=== PATIENT | female | born 1975 | race Caucasian/White ===

== ENCOUNTER 2016-09-29 20:24 | Emergency (ER) | payer OTHER ==
[2016-09-29 20:41] VITALS: RESP 18; TEMP 97.8
[2016-09-29 21:30] LABS: Basophils % (A) 1 %; CH 30.1; CHCM 33.2; Eosinophils # (A) 0.1 k/uL (0-0.7); Eosinophils % (A) 2 %; HCT 37.6 % (34.0-46.0); HDW 2.32; HGB 12.2 gm/dL (11.4-16.0); Luc # (Auto) 0.05; Luc % (Auto) 1; Lymphocytes # (A) 1.5 k/uL (1.0-4.8); Lymphocytes % (A) 40 %; MCH 29.4 pg (25.0-35.0); MCHC 32.4 g/dL (31.0-37.0); MCV 90.9 fL (80.0-100.0); Mean Platelet Volume 9.1; Monocytes # (A) 0.2 k/uL (0-1.0); Monocytes % (A) 6 %; Neutrophils # (A) 1.9 k/uL (1.3-7.7); Neutrophils % (A) 51 %; RBC 4.14 m/uL (3.80-5.40); RDW 13.1 % (11.5-15.5); WBC 3.7 k/uL (3.8-10.6); WBC (Perox) 3.62
[2016-09-29 21:39] LABS: Partial Thromboplastin Time 24.1 sec (22.0-30.0); Prothrombin Time 10.3 sec (9.0-12.0)
[2016-09-29 21:40] LABS: ALT 31 U/L (9-52); AST 32 U/L (14-36); Alkaline Phosphatase 69 U/L (38-126); Anion Gap 12 mmol/L; Blood Urea Nitrogen 11 mg/dL (7-17); Carbon Dioxide 30 mmol/L (22-30); Chloride 101 mmol/L (98-107); Glucose 94 mg/dL (74-99); Magnesium 1.8 mg/dL (1.6-2.3); Non-African American GFR(MDRD) >60 (>60 ml/min/1.73 sqM); Potassium 3.8 mmol/L (3.5-5.1); Sodium 143 mmol/L (137-145); Total Bilirubin 0.3 mg/dL (0.2-1.3); Total Protein 7.4 g/dL (6.3-8.2)
[2016-09-29 21:50] LABS: Creatine Kinase 141 U/L (30-135)
[2016-09-29 22:03] LABS: Troponin I <0.012 ng/mL (0.000-0.034)
--- NOTE | 2016-09-29 22:19 | XR ---
EXAMINATION TYPE: XR chest 2V DATE OF EXAM: 09/29/2016 10:07 PM COMPARISON: 06/20/2014 HISTORY: Complaints of neck numbness no injury history of sarcoidosis TECHNIQUE: Frontal and lateral views of the chest are obtained. FINDINGS: There is hyperinflation of lung wilkerson. Minor interstitial changes are suggested bilaterally probably related to chronic lung changes and known history of sarcoidosis. There is no focal pneumonia, pleural effusion, or pneumothorax seen. The cardiac silhouette size is within normal limits. The osseous structures are intact. IMPRESSION: No focal pneumonia or infiltrates. No significant interval change.
--- NOTE | 2016-09-29 22:32 | XR ---
EXAMINATION TYPE: XR cervical spine comp DATE OF EXAM: 09/29/2016 10:07 PM CLINICAL HISTORY: pain complaints of neck numbness no injury history of sarcoidosis COMPARISON: 10/09/2011 TECHNIQUE: Frontal, lateral, oblique, swimmers, and open mouth view of the cervical spine are obtaine d. FINDINGS: The cervical spine is visualized in its entirety from C1 thru the top of T1 level. It is s atisfactory in alignment without evidence of acute fracture or dislocation. The pre-vertebral soft t issue appears within normal limits. Disc spaces are well preserved. The C1-C2 articulation is unremar kable on the open mouth view. The oblique images are within normal limits. Mild degenerative changes are suggested in the cervical spine. IMPRESSION: No acute fracture or dislocation is seen in the cervical spine. Mild degenerative changes. No significant interval change. ICD 10 NO FRACTURE, INITIAL EVALUATION
--- NOTE | 2016-09-29 22:42 | ED ---
General Adult HPI - General Chief complaint: Neck Pain/Injury Stated complaint: Palpatations/Rt side face numbness Time Seen by Provider: 09/29/16 20:56 Source: patient, RN notes reviewed Mode of arrival: ambulatory Limitations: no limitations - History of Present Illness Initial comments: Patient is a 41-year-old female presenting to the with chief complaint of numbness over her throat as well as coming over her face for approximately 3 days. Patient also reports that she's had a few episodes of heart palpitations presently 2 days. Patient states that when this happened she starts to become nervous and anxious. She also reports that she's had a sided neck pain which she reports she feels like is a pinched nerve. Patient denies any pain at this time. Patient reports that she's had no trouble swallowing. Patient reports that she has no cardiac history and is a nonsmoker. - Related Data Home Medications Medication Instructions Recorded Confirmed Methadone [Dolophine] 10 mg PO BID 01/19/14 09/29/16 Levothyroxine Sodium [Synthroid] 88 mcg PO TUTHSA 04/20/16 09/29/16 Levothyroxine Sodium [Synthroid] 100 mcg PO SUMOWEFR 04/20/16 09/29/16 Previous Rx's Medication Instructions Recorded Ibuprofen [Motrin] 800 mg PO Q8HR PRN #30 tab 01/19/14 Allergies Allergy/AdvReac Type Severity Reaction Status Date / Time latex Allergy Rash/Hives Verified 09/29/16 21:07 prochlorperazine edisylate AdvReac FEELS LIKE Verified 09/29/16 21:07 [From Compazine] SKIN IS CRAWLING" prochlorperazine maleate AdvReac Unknown Verified 09/29/16 21:07 [From Compazine] Review of Systems ROS Statement: Those systems with pertinent positive or pertinent negative responses have been documented in the HPI. ROS Other: All systems not noted in ROS Statement are negative. Past Medical History Past Medical History: COPD, Thyroid Disorder Additional Past Medical History / Comment(s): factor 5 deficiency, osteopenia, raynauds History of Any Multi-Drug Resistant Organisms: None Reported Past Surgical History: Back Surgery, Breast Surgery, Section, Hysterectomy, Orthopedic Surgery Additional Past Surgical History / Comment(s): BREAST IMPLANTS REMOVED, LAPAROSCOPIC EXAMS, Past Anesthesia/Blood Transfusion Reactions: No Reported Reaction Past Psychological History: No Psychological Hx Reported Smoking Status: Former smoker Past Alcohol Use History: None Reported Past Drug Use History: None Reported - Past Family History Mother Family Medical History: Cancer General Exam Limitations: no limitations Course Vital Signs 09/29/16 09/29/16 20:37 23:24 Temperature 97.8 F 97.8 F Pulse Rate 81 78 Respiratory 18 18 Rate Blood Pressure 110/66 122/78 O2 Sat by Pulse 99 98 Oximetry EKG Findings - EKG Comments: EKG Findings:: EKG shows normal sinus rhythm. There is evidence of cannot rule out anterior infarct. Ventricular rate 69 bpm. MO interval is 152 ms. QRS duration is 84 ms. QT/QTc is 420/450 ms. Medical Decision Making - Medical Decision Making Patient is a 41 year old female with chief complaint of neck paresthesias radiating to her face, and a few episodes of palpitations in the EC. Labs were reviewed to be negative. Patients Cxr and cervical spine are negative. Given patient's lengthy history of these symptoms and negative cardiac enzymes and negative EKG is unlikely that anything is related to the heart. Patient reports increased muscle spasm in the trapezius and relates this to her symptoms. Patient will be discharged at this time and declines any medication. I advised close follow-up with primary care physician. Patient understands treatment plan will comply. Return parameters were discussed. - Lab Data Result diagrams: 09/29/16 21:20 09/29/16 21:20 Lab Results 09/29/16 09/29/16 09/29/16 Range/Units 21:20 21:20 21:20 WBC 3.7 L (3.8-10.6) k/uL RBC 4.14 (3.80-5.40) m/uL Hgb 12.2 (11.4-16.0) gm/dL Hct 37.6 (34.0-46.0) % MCV 90.9 (80.0-100.0) fL MCH 29.4 (25.0-35.0) pg MCHC 32.4 (31.0-37.0) g/dL RDW 13.1 (11.5-15.5) % Plt Count 109 L (150-450) k/uL Neutrophils % 51 % Lymphocytes % 40 % Monocytes % 6 % Eosinophils % 2 % Basophils % 1 % Neutrophils # 1.9 (1.3-7.7) k/uL Lymphocytes # 1.5 (1.0-4.8) k/uL Monocytes # 0.2 (0-1.0) k/uL Eosinophils # 0.1 (0-0.7) k/uL Basophils # 0.0 (0-0.2) k/uL PT (9.0-12.0) sec INR (<1.1) APTT (22.0-30.0) sec Sodium 143 (137-145) mmol/L Potassium 3.8 (3.5-5.1) mmol/L Chloride 101 (98-107) mmol/L Carbon Dioxide 30 (22-30) mmol/L Anion Gap 12 mmol/L BUN 11 (7-17) mg/dL Creatinine 0.72 (0.52-1.04) mg/dL Est GFR (MDRD) Af Amer >60 (>60 ml/min/1.73 sqM) Est GFR (MDRD) Non-Af >60 (>60 ml/min/1.73 sqM) Glucose 94 (74-99) mg/dL Calcium 9.0 (8.4-10.2) mg/dL Magnesium 1.8 (1.6-2.3) mg/dL Total Bilirubin 0.3 (0.2-1.3) mg/dL AST 32 (14-36) U/L ALT 31 (9-52) U/L Alkaline Phosphatase 69 (38-126) U/L Total Creatine Kinase 141 H (30-135) U/L CK-MB (CK-2) 1.0 (0.0-2.4) ng/mL CK-MB (CK-2) Rel Index 0.7 Troponin I <0.012 (0.000-0.034) ng/mL Total Protein 7.4 (6.3-8.2) g/dL Albumin 4.3 (3.5-5.0) g/dL 09/29/16 Range/Units 21:20 WBC (3.8-10.6) k/uL RBC (3.80-5.40) m/uL Hgb (11.4-16.0) gm/dL Hct (34.0-46.0) % MCV (80.0-100.0) fL MCH (25.0-35.0) pg MCHC (31.0-37.0) g/dL RDW (11.5-15.5) % Plt Count (150-450) k/uL Neutrophils % % Lymphocytes % % Monocytes % % Eosinophils % % Basophils % % Neutrophils # (1.3-7.7) k/uL Lymphocytes # (1.0-4.8) k/uL Monocytes # (0-1.0) k/uL Eosinophils # (0-0.7) k/uL Basophils # (0-0.2) k/uL PT 10.3 (9.0-12.0) sec INR 1.0 (<1.1) APTT 24.1 (22.0-30.0) sec Sodium (137-145) mmol/L Potassium (3.5-5.1) mmol/L Chloride (98-107) mmol/L Carbon Dioxide (22-30) mmol/L Anion Gap mmol/L BUN (7-17) mg/dL Creatinine (0.52-1.04) mg/dL Est GFR (MDRD) Af Amer (>60 ml/min/1.73 sqM) Est GFR (MDRD) Non-Af (>60 ml/min/1.73 sqM) Glucose (74-99) mg/dL Calcium (8.4-10.2) mg/dL Magnesium (1.6-2.3) mg/dL Total Bilirubin (0.2-1.3) mg/dL AST (14-36) U/L ALT (9-52) U/L Alkaline Phosphatase (38-126) U/L Total Creatine Kinase (30-135) U/L CK-MB (CK-2) (0.0-2.4) ng/mL CK-MB (CK-2) Rel Index Troponin I (0.000-0.034) ng/mL Total Protein (6.3-8.2) g/dL Albumin (3.5-5.0) g/dL - Radiology Data Radiology results: report reviewed CXR and cervical spine show no acute process. Disposition Clinical Impression: Neck pain, History of palpitations, Facial paresthesia Disposition: HOME SELF-CARE Condition: Good Instructions: Cervical Strain (ED), Paresthesia (ED) Additional Instructions: Patient instructed to apply heat over the neck. Patient started to have close follow-up with primary care physician. Patient started to return to the EC if any alarming signs or symptoms occur. Referrals: Jocelyne Domingo MD [Primary Care Provider] - 1-2 days Time of Disposition: 22:56
[2016-09-29 23:25] VITALS: BP 122/78; PULSE 78
== END 2016-09-29 23:24 | disposition home or self-care (01) ==
LOC: EC 20:24
DX: M54.2 Cervicalgia (principal); R00.2 Palpitations; R20.0 Anesthesia of skin; Z79.899 Other long term (current) drug therapy; Z91.040 Latex allergy status; Z88.8 Allergy status to other drugs, medicaments and biological substances; E07.9 Disorder of thyroid, unspecified; Z87.891 Personal history of nicotine dependence; Z79.891 Long term (current) use of opiate analgesic
CPT/HCPCS: 36415; 71020; 72050; 80053; 82550; 82553; 83735; 84484; 85025; 85610; 85730; 93005; 99284

== ENCOUNTER → 2016-10-10 | Outpatient (CLI) | payer OTHER ==
--- NOTE | 2016-10-10 15:23 | CT ---
EXAMINATION TYPE: CT abdomen pelvis wo con DATE OF EXAM: 10/10/2016 3:01 PM COMPARISON: NONE HISTORY: Constipation, appetite loss CT DLP: 258.2 mGycm FINDINGS: LUNG BASES: No evidence for nodule. No evidence for infiltrate. LIVER/GB: The gallbladder is unremarkable. No space-occupying hepatic lesion. PANCREAS: No pancreatic mass identified. No inflammatory process seen. SPLEEN: No evidence for splenomegaly. No intrasplenic lesions seen. ADRENALS: No adrenal nodules identified. No evidence for thickening. KIDNEYS: No evidence for renal mass. No nephrolithiasis. No hydronephrosis. BOWEL: Appendix has a normal appearance. No evidence of bowel obstruction. No inflammatory process. M oderate fecal stasis. Lymph nodes: No evidence for adenopathy greater than 1 cm. Abdominal aorta: Atheromatous changes seen. No evidence for aneurysm. Genital organs: No significant abnormality. Other: Degenerative changes and postoperative changes lumbar spine. IMPRESSION: MODERATE FECAL STASIS. OTHERWISE UNREMARKABLE STUDY.
== END | disposition home or self-care (01) ==
LOC: RADCTMAIN 14:48
PROVIDERS: ATTEND Family Medicine
DX: K59.09 Other constipation (principal); R63.0 Anorexia
CPT/HCPCS: 74176

== ENCOUNTER → 2016-10-27 | Outpatient (CLI) | payer OTHER ==
--- NOTE | 2016-10-27 22:35 | MR ---
EXAMINATION TYPE: MR cervical spine wo con DATE OF EXAM: 10/27/2016 7:57 PM COMPARISON: NONE HISTORY: PARESTHESIA OF SKIN TECHNIQUE: Multiplanar, multisequence images of the cervical spine were acquired. C2-C3: No evidence for degenerative disc disease. No disc bulge/herniation or protrusion. No Canal stenosis. Foramina are patent bilaterally. C3-C4: No evidence for degenerative disc disease. No disc bulge/herniation or protrusion. No Canal stenosis. Uncovertebral joint hypertrophy in the right with mild right-sided foraminal encroachment. C4-C5: No evidence for degenerative disc disease. No disc bulge/herniation or protrusion. No Canal stenosis. Very mild central broad-based disc bulging but no canal stenosis There is uncovertebral noel nt hypertrophy bilaterally greater on the right. Mild right foraminal encroachment. C5-C6: No evidence for degenerative disc disease. No disc bulge/herniation or protrusion. No Canal stenosis. Foramina are patent bilaterally. Facet arthropathy seen with uncovertebral joint hypertrop hy noted bilaterally. C6-C7: No evidence for degenerative disc disease. No disc bulge/herniation or protrusion. No Canal stenosis. Foramina are patent bilaterally. C7-T1: No evidence for degenerative disc disease. No disc bulge/herniation or protrusion. No Canal stenosis. Foramina are patent bilaterally. Cervical segments are intact. There is normal alignment. Cervical spinal cord is of normal signal. Craniovertebral junction relationships are within normal limits. IMPRESSION: 1. Mild broad-based central disc bulging C4-5 with no canal stenosis. 2. Uncovertebral joint hypertrophy C3-C4 and C4-C5 with mild right foraminal encroachment.
== END | disposition home or self-care (01) ==
LOC: RADMRIMAIN 18:51
PROVIDERS: ATTEND Family Medicine
DX: M50.221 Other cervical disc displacement at C4-C5 level (principal)
CPT/HCPCS: 72141

== ENCOUNTER → 2016-12-17 | Outpatient (CLI) | payer OTHER ==
--- NOTE | 2016-12-17 19:44 | MR ---
EXAMINATION TYPE: MR lumbar spine wo/w con DATE OF EXAM: 12/17/2016 1:53 PM COMPARISON: NONE HISTORY: 41-year-old female with low Back Pain Technique: Multiplanar, multisequence images of the lumbar spine were obtained before and after admin istration of 13 mL intravenous MultiHance gadolinium contrast. FINDINGS: There is severe metal hardware artifact relating to patient's L5-S1 posterior fusion. The spinal castro l at these levels is nondiagnostic as are the neuroforamina. There is facet arthropathy within the lumbar spine with trace grade 1 retrolistheses at L2-L3 and L3- L4. Vertebral body heights are preserved. No suspicious bone marrow replacement. Conus medullaris is normal. At T12-L1, minimal bulging disc without canal or foraminal stenosis. At L1-L2, minimal bulging disc and a tiny left paracentral protrusion without significant canal or fo raminal stenosis. At L2-L3, there is trace retrolisthesis with broad based posterior disc bulge and mild facet arthropa thy. Changes mildly narrow the thecal sac without significant spinal canal stenosis or neuroforaminal stenosis. At L3-L4, there is trace retrolisthesis with bulging disc, ligamentum flavum thickening, and facet ar thropathy. Changes result in moderate spinal canal stenosis with mild right and minimal inferior left neuroforaminal stenosis. At L4-L5, no significant spinal canal stenosis. The right neuroforamen appears patent. The left neuro foramen is nondiagnostic. The L5 and S1 levels are nondiagnostic. No prevertebral or paravertebral soft tissue abnormality seen. Bilateral extrarenal pelves incidenta lly noted. IMPRESSION: 1. Severe metal hardware artifact relating to the patient's L5-S1 posterior fusion. The L5 and S1 lev els including the spinal canal and neuroforamina are nondiagnostic at this level. 2. Mild to moderate multilevel degenerative disc disease along with facet arthropathy and ligamentum flavum thickening. 3. Changes result in trace grade 1 retrolistheses at L2-L3 and L3-L4. 4. At L3-L4, there is a moderate spinal canal stenosis with mild right neural foraminal stenosis. 5. At L2-L3, there is mild narrowing of the thecal sac without significant spinal canal stenosis.
== END | disposition home or self-care (01) ==
LOC: RADMRIMAIN 12:52
PROVIDERS: ATTEND Psychiatry & Neurology Neurology
DX: M48.06 Spinal stenosis, lumbar region (principal); M99.73 Connective tissue and disc stenosis of intervertebral foramina of lumbar region; M51.36 Other intervertebral disc degeneration, lumbar region; M46.96 Unspecified inflammatory spondylopathy, lumbar region; M43.16 Spondylolisthesis, lumbar region; M24.28 Disorder of ligament, vertebrae; Z98.1 Arthrodesis status
CPT/HCPCS: 72158; A9577

== ENCOUNTER → 2017-02-07 | Outpatient (CLI) | payer OTHER ==
--- NOTE | 2017-02-07 11:57 | MM ---
Reason for exam: additional evaluation requested from prior study. Last mammogram was performed 1 year ago. History: Patient is postmenopausal. Family history of breast cancer in maternal aunt at age 50. Implant Removal of both breasts, 2005. Implants in both breasts, 1996. Took hormonal contraceptives for 3 years beginning at age 13. Took estrogen for 9 years beginning at age 26. Took other hormone for 5 years. Physical Findings: Nurse did not find any significant physical abnormalities on exam. MG Diagnostic Mammo w CAD ANTOINETTE Bilateral CC and MLO view(s) were taken. Prior study comparison: January 29, 2016, bilateral MG screening mammo w CAD. The breast tissue is extremely dense which could obscure a lesion on mammography. No significant new findings when compared with previous films. These results were verbally communicated with the patient and result sheet given to the patient on 02/07/17. ASSESSMENT: Benign, BI-RAD 2 RECOMMENDATION: Follow-up diagnostic mammogram of both breasts in 1 year. Manage patient on a clinical basis with regard to nipple discharge.
--- NOTE | 2017-02-07 11:58 | USB ---
Reason for exam: additional evaluation requested from prior study. History: Patient is postmenopausal. Family history of breast cancer in maternal aunt at age 50. Implant Removal of both breasts, 2005. Implants in both breasts, 1996. Took hormonal contraceptives for 3 years beginning at age 13. Took estrogen for 9 years beginning at age 26. Took other hormone for 5 years. US Breast BILAT Right breast ultrasound includes all four quadrants, the retroareolar region and axilla. Finding demonstrate no cystic or solid lesion seen. Left breast ultrasound includes all four quadrants, the retroareolar region and axilla. Finding demonstrate no cystic or solid lesion seen. These results were verbally communicated with the patient and result sheet given to the patient on 02/07/17. ASSESSMENT: Negative, BI-RAD 1 RECOMMENDATION: Follow-up diagnostic mammogram of both breasts in 1 year.
== END | disposition home or self-care (01) ==
LOC: RADMAMWWP 08:59
PROVIDERS: ATTEND Family Medicine
DX: N64.52 Nipple discharge (principal)
CPT/HCPCS: 76641; G0204

== ENCOUNTER → 2017-03-03 | Outpatient (CLI) | payer OTHER ==
--- NOTE | 2017-03-03 11:48 | US ---
EXAMINATION TYPE: US kidneys/renal and bladder DATE OF EXAM: 03/03/2017 COMPARISON: US kidneys August 19, [address] abdomen and pelvis October 10, 2016 CLINICAL HISTORY: Hematuria R31.9. EXAM MEASUREMENTS: Right Kidney: 9.9 x 4.3 x 4.0 cm Left Kidney: 10.1 x 4.9 x 5.3 cm Right Kidney: No hydronephrosis or masses seen Left Kidney: No hydronephrosis or masses seen Bladder: wnl Bilateral Jets seen: Yes There is no evidence for hydronephrosis at this point in time. No nephrolithiasis is seen. No madalyn s are identified. The urinary bladder is anechoic. Bilateral ureteral jets are seen. IMPRESSION: Unremarkable study.
== END | disposition home or self-care (01) ==
LOC: RADUSWWP 11:09
PROVIDERS: ATTEND Urology
DX: R31.21 Asymptomatic microscopic hematuria (principal)
CPT/HCPCS: 76770

== ENCOUNTER → 2017-03-10 | Outpatient (CLI) | payer OTHER ==
--- NOTE | 2017-03-10 13:02 | CT ---
EXAMINATION TYPE: CT brain wo con DATE OF EXAM: 03/10/2017 COMPARISON: NONE INDICATION: Sudden Idiopathic Hearing Loss DLP: 1064.30 mGycm, Automated exposure control for dose reduction was used. CONTRAST: None. Patient refused contrast timing of the examination. CT of the brain is performed utilizing 3 mm thick sections through the posterior fossa and 3 mm thick sections through the remaining calvarium. Study is performed within 24 hours of arrival to the hosp ital. No abnormal hyperdensity is present to suggest an acute intracranial hemorrhage. No mass lesion is evident. No acute infarcts are evident. Cerebellar pontine angles and internal auditory canals appear normal. Mastoid air cells are clear. Ventricles and sulci are appropriate for the patient age. Paranasal sinuses and mastoid air cells within the [id number] are clear. IMPRESSIONS: 1. No acute intracranial process noncontrast CT brain
== END ==
LOC: RADCTMAIN 11:31
PROVIDERS: ATTEND Family Medicine
DX: H91.22 Sudden idiopathic hearing loss, left ear (principal); R20.9 Unspecified disturbances of skin sensation
CPT/HCPCS: 70450

== ENCOUNTER → 2017-03-23 | Outpatient (CLI) | payer OTHER ==
--- NOTE | 2017-03-23 12:47 | MR ---
EXAMINATION TYPE: MR knee LT wo con DATE OF EXAM: 03/23/2017 COMPARISON: MR left knee 07/02/2015 HISTORY: Left knee pain S 83.231A medial meniscal tear, S [id number], lateral the skull tear TECHNIQUE: Multiplanar, multisequence imaging of the left knee is performed without IV contrast. FINDINGS: MEDIAL MENISCUS: Anterior and posterior horns are intact without tear. LATERAL MENISCUS: Anterior and posterior horns are intact without tear. CRUCIATE LIGAMENTS: The anterior and posterior cruciate ligaments are intact and unremarkable. COLLATERAL LIGAMENTS: The medial collateral ligament and lateral collateral ligament complex are inta ct and unremarkable. EXTENSOR MECHANISM: Visualized quadriceps and patellar tendons are intact. EFFUSION: Only minimal effusion noted. POPLITEAL CYST: Minimal fluid in the semimembranosus gastrocnemius bursa as on prior. TRICOMPARTMENT SPACES: Intact CARTILAGE: There is grade III chondromalacia present at the posterior patella and medial femoral cond yle. BONE MARROW SIGNAL: No focal abnormal marrow signal is appreciated. OTHER: No additional significant abnormality is appreciated. IMPRESSION: Chondromalacia likely indicative of osteoarthritic change is similar to prior exam.
--- NOTE | 2017-03-23 12:53 | MR ---
EXAMINATION TYPE: MR knee RT wo con DATE OF EXAM: 03/23/2017 COMPARISON: Plain film 10/09/2011 HISTORY: Right knee pain, S 83.231A, [id number] TECHNIQUE: Multiplanar, multisequence imaging of the right knee is performed without IV contrast. FINDINGS: MEDIAL MENISCUS: There is linear increased signal involving the body and posterior horn of the medial meniscus and thought to extend to the inferior articular surface compatible with tear. LATERAL MENISCUS: Cleft is thought present bilaterally. CRUCIATE LIGAMENTS: The anterior and posterior cruciate ligaments are intact and unremarkable. COLLATERAL LIGAMENTS: The medial collateral ligament and lateral collateral ligament complex are inta ct and unremarkable. EXTENSOR MECHANISM: Visualized quadriceps and patellar tendons are intact. EFFUSION: There is a small joint effusion. POPLITEAL CYST: No popliteal/rodriguez cyst. TRICOMPARTMENT SPACES: Narrowed medially CARTILAGE: Grade 3 to grade IV chondromalacia present in the medial compartment. BONE MARROW SIGNAL: There is some marrow edema present at the posterior medial femoral condyle. OTHER: No additional significant abnormality is appreciated. IMPRESSION: Meniscal tear is suspected. Osteoarthritis. Bone contusion or reactive marrow edema suspected posteri or medial femoral condyle.
== END | disposition home or self-care (01) ==
LOC: RADMRIMAIN 10:12
PROVIDERS: ATTEND Orthopaedic Surgery
DX: M17.11 Unilateral primary osteoarthritis, right knee (principal); S83.232A Complex tear of medial meniscus, current injury, left knee, initial encounter

== ENCOUNTER → 2017-03-23 | Outpatient (CLI) | payer OTHER ==
[2017-03-23 11:49] LABS: Blood Urea Nitrogen 12 mg/dL (7-17); Non-African American GFR(MDRD) >60 (>60 ml/min/1.73 sqM)
--- NOTE | 2017-03-23 13:15 | CT ---
EXAMINATION TYPE: CT brain w con DATE OF EXAM: 03/23/2017 COMPARISON: CT brain March 10, 2017 HISTORY: Sudden idiopathic hearing loss of left ear CT DLP: 995.50 mGycm Automated Exposure Control for Dose Reduction was Utilized. TECHNIQUE: CT scan of the head is performed with IV contrast.,CT scan of the head is performed withou t and with with IV Contrast, patient injected with 100 ml mL of Omnipaque 300. COMPARISON: None. FINDINGS: The ventricles and sulci are within normal limits in size. Postcontrast images show no marcelo picious enhancing intraparenchymal mass or midline shift. Gillespie-white matter differentiation is preser clem. The globes are intact and the visualized sinuses are clear. No suspicious opacification of masto id air cells is seen. No suspicious middle ear soft tissue identified. IMPRESSION: No significant finding is seen to account for patient's symptoms.
== END | disposition home or self-care (01) ==
LOC: RADCTMAIN 11:08
PROVIDERS: ATTEND Family Medicine
DX: H91.22 Sudden idiopathic hearing loss, left ear (principal)
CPT/HCPCS: 82565; 84520; 70460; 36415; Q9967

== ENCOUNTER → 2017-05-09 | Outpatient (CLI) | payer OTHER ==
--- NOTE | 2017-05-09 14:33 | CT ---
EXAMINATION TYPE: CT chest w con DATE OF EXAM: 05/09/2017 COMPARISON: 11/26/2012 HISTORY: Hemoptysis CT DLP: 405 mGycm Automated exposure control for dose reduction was used. CONTRAST: CT scan of the chest is performed with IV Contrast, patient injected with 100 ml mL of Omnipaque 300. FINDINGS: LUNGS: The lungs are grossly clear, there is no concerning parenchymal mass or nodule identified. T here is no pleural effusion or pneumothorax seen. The tracheobronchial tree is patent. Biapical pleu ral thickening noted. Small bleb noted within the right upper lobe. MEDIASTINUM: There are no greater than 1 cm hilar or mediastinal lymph nodes. Trace amount of pericar dial fluid noted inferiorly.. OTHER: Shotty adenopathy in the axilla. Hypertrophic and degenerative change of the spine noted. Pos terior disc osteophyte complex within the lower thoracic spine may result in a degree of Canal stenos is IMPRESSION: 1. Small bleb within the right upper lobe and biapical pleural thickening with no definite acute proc ess.
== END | disposition home or self-care (01) ==
LOC: RADCTMAIN 12:47
PROVIDERS: ATTEND Family Medicine
DX: J92.9 Pleural plaque without asbestos (principal); J43.9 Emphysema, unspecified
CPT/HCPCS: 71260; Q9967

== ENCOUNTER → 2017-08-29 | Outpatient (CLI) | payer OTHER ==
[2017-08-29 14:28] LABS: Blood Urea Nitrogen 9 mg/dL (7-17); Non-African American GFR(MDRD) >60 (>60 ml/min/1.73 sqM)
--- NOTE | 2017-08-29 17:23 | CT ---
EXAMINATION TYPE: CT abdomen pelvis w con DATE OF EXAM: 08/29/2017 COMPARISON: 10/10/2016 INDICATION: Generalized pain and bloating DLP: 398.9 mGycm, Automated exposure control for dose reduction was used. CONTRAST: 100 mL of Omnipaque 300. Study performed with Oral Contrast TECHNIQUE: Axial images were obtained from above the diaphragm to the pubic rami in the axial plane a t 5 mm thick sections. Reconstructed images are reviewed on the computer in the coronal plane. FINDINGS: Limited CT sections are obtained the lung bases. The lung bases are clear. CT ABDOMEN: Liver: Normal Spleen: Normal Pancreas: Normal Adrenal glands: The adrenal glands are normal. Gallbladder: Normal Kidneys: No masses are evident. No hydronephrosis is present. No cysts are present. Delayed images were obtained through the kidneys, which remain unremarkable. Aorta: Vascular calcification is within the aorta. Inferior vena cava: Normal. CT PELVIS: Loops of bowel within the abdomen and pelvis are normal. Loops of bowel lack oral contrast limiti ng their evaluation. Fecal debris is within the colon. Some beam hardening artifact at the lower lumb ar spine limits evaluation of the portion of the pelvis. Appendix: Not identified. No suspicious tubular structures or inflammatory changes are evident. Urinary bladder: Normal. Genitourinary structures: Uterus and ovaries are not identified. Correlate with the surgical history Osseous structures: L5-S1 pedicle screws and fixation rods are present. Small sclerotic areas within the upper lumbar spine vertebral body IMPRESSIONS: 1. Scattered fecal debris within the colon. No change to suggest obstruction or ileus is evident.
== END | disposition home or self-care (01) ==
LOC: RADCTMAIN 13:35
PROVIDERS: ATTEND Family Medicine
DX: K59.09 Other constipation (principal); R63.4 Abnormal weight loss; R14.0 Abdominal distension (gaseous); R19.8 Other specified symptoms and signs involving the digestive system and abdomen
CPT/HCPCS: 82103; 82104; 82565; 84520; 74177; 36415; Q9967

== ENCOUNTER 2017-09-07 09:54 | Day surgery (SDC) | payer OTHER ==
[2017-08-31 15:34] VITALS: BMI 19.3
[~2017-09-07 09:54] MED LIST: LACTATED RINGERS 1,000 ML IV SCH
[2017-09-07 10:18] VITALS: TEMP 98
[2017-09-07] MEDS ORDERED: LACTATED RINGERS 1,000 ML IV ONE (10:18)
[2017-09-07] MEDS ORDERED: PHENYLEPHRINE-0.9% NACL SYG 1 MG/10 ML SYRINGE ONE (11:15)
[2017-09-07] MEDS ORDERED: PROPOFOL 10 MG/ML 20 ML VIAL IV ONE (11:15)
[2017-09-07 12:08] VITALS: RESP 16
[2017-09-07 12:18] VITALS: BP 105/58; PULSE 69
[2017-09-07] MEDS ORDERED: ONDANSETRON 4 MG/2 ML VIAL IVP ONE (12:19)
--- NOTE | 2017-09-07 12:35 | P.PCN ---
Date of Procedure: 09/07/17 Procedure(s) Performed: Procedure: 1. Esophagogastroduodenoscopy and biopsy. 2. Total colonoscopy. Preoperative diagnosis: Epigastric pain and change in bowel habits. Postoperative diagnosis: 1. Small sliding hiatal hernia with no obvious esophagitis or complicated reflux disease. 2. Mild antral gastritis. 3. Less than ideal preparation of the colon, otherwise, exam of the colon and terminal ileum within normal limits. Preparation: HalfLytely prep. Sedation: Was provided by anesthesia. Brief clinical history: The patient is a 42-year-old female who is referred for this evaluation because of epigastric pain and episodes of coughing up blood in addition to change in bowel habits. This evaluation is to rule out peptic ulcer disease, neoplasia or inflammatory bowel disease. Procedure: With the patient on her left lateral decubitus position and after informed consent and adequate sedation, I passed the Olympus-GIF 160 video upper endoscope through the cricopharyngeus down the esophagus. GE junction was around 41 cm from the incisors and there was a small sliding hiatal hernia with no obvious esophagitis or complicated reflux disease. The endoscope was then passed into the stomach which was insufflated with air and inspected in detail including the retroflex view in the cardia. There was some mottling and erythema in the antrum consistent with mild gastritis but no ulcers or erosions. Pyloric channel, duodenal bulb, post bulbar area and descending duodenum appeared within normal limits. I obtained biopsies from the duodenum, antrum and esophagus then the endoscope was withdrawn and I proceeded with the colonoscopy. Perianal area did not show any fissures or fistulas. There were no masses felt on digital rectal examination. The Olympus CFQ 160L video colonoscope was then inserted in the rectum in the usual fashion and advanced to the cecum. I intubated the ileocecal valve and examined the terminal ileum. The preparation was less than ideal, and there was thick fecal secretions and cecal debris encountered. Terminal ileum and colon appeared healthy with no edema, erythema, friability, ulceration, exudation or spontaneous bleeding. There were no obvious diverticular disease or other pathology. I retroflexed the endoscope in the rectum before the endoscope was withdrawn. The patient tolerated the procedure well. Plan: The patient was reassured. Will await pathology results. She will follow -up with you as planned and because of her less than ideal preparation, I am recommending repeat exam in around 5 years.
== END 2017-09-07 12:37 | disposition home or self-care (01) ==
LOC: ORWHC2ENDO 09:54
DX: K29.50 Unspecified chronic gastritis without bleeding (principal); K20.9 Esophagitis, unspecified; K44.9 Diaphragmatic hernia without obstruction or gangrene; E07.9 Disorder of thyroid, unspecified; J44.9 Chronic obstructive pulmonary disease, unspecified; D68.2 Hereditary deficiency of other clotting factors; K59.00 Constipation, unspecified; Z87.891 Personal history of nicotine dependence; Z91.09 Other allergy status, other than to drugs and biological substances; Z79.82 Long term (current) use of aspirin; Z79.899 Other long term (current) drug therapy
CPT/HCPCS: 88305; 88342; 45378; 43239; J2405; J2370; J2704

== ENCOUNTER → 2017-09-15 | Outpatient (CLI) | payer OTHER ==
--- NOTE | 2017-09-15 14:30 | XR ---
EXAMINATION TYPE: XR chest 2V DATE OF EXAM: 09/15/2017 COMPARISON: Chest x-ray September 29, 2016. HISTORY: Cough and fever. TECHNIQUE: Frontal and lateral views of the chest are obtained. FINDINGS: There is no focal air space opacity, pleural effusion, or pneumothorax seen. Underlying em physematous change is not excluded. The cardiac silhouette size is within normal limits. The osseou s structures are intact. IMPRESSION: No suspicious acute pulmonary process. No significant change from prior.
== END | disposition home or self-care (01) ==
LOC: RADXRMAIN 14:03
PROVIDERS: ATTEND Family Medicine
DX: R05 Cough (principal); R50.9 Fever, unspecified; R52 Pain, unspecified
CPT/HCPCS: 71046; 87502

== ENCOUNTER → 2017-10-17 | Outpatient (CLI) | payer OTHER | END | disposition home or self-care (01) | LOC: CPPFTMAIN 11:53 | PROVIDERS: ATTEND Internal Medicine Pulmonary Disease | DX: R05 Cough (principal); R06.02 Shortness of breath | CPT/HCPCS: 94060; 94726; 94729 ==

== ENCOUNTER → 2017-12-26 | Outpatient (CLI) | payer OTHER ==
--- NOTE | 2017-12-26 12:01 | MR ---
Temporomandibular joint MRI HISTORY: Temporomandibular joint disorder Multiplanar multisequence imaging obtained through the temporomandibular joints, comparison to brain CT 03/23/2017 The discs show biconcave appearance on the left, the right shows somewhat irregular appearance. The d isc shows normal translocation on open views on the left, partial posterior translocation noted on cl osed mouth view is present. The right disc does not show normal posterior translocation with the cond yle on closed mouth view, shows a normal position on open mouth view. No definite joint effusion. No significant arthropathy is present bilaterally. Bone marrow signal is maintained. IMPRESSION: Temporomandibular joint shows abnormal disc position on closed mouth views right greater than left as described.
== END | disposition home or self-care (01) ==
LOC: RADMRIMAIN 08:41
PROVIDERS: ATTEND Dentist Oral and Maxillofacial Pathology
DX: M26.603 Bilateral temporomandibular joint disorder, unspecified (principal)
CPT/HCPCS: 70336

== ENCOUNTER → 2018-02-13 | Outpatient (CLI) | payer OTHER ==
--- NOTE | 2018-02-13 11:09 | MM ---
Reason for exam: clinical finding. Last mammogram was performed 1 year ago. History: Patient is postmenopausal. Family history of breast cancer in maternal aunt at age 50. Implant Removal of both breasts, 2005. Implants in both breasts, 1996. Indicated problem(s): non-bloody discharge in both breasts. Physical Findings: Nurse did not find any significant physical abnormalities on exam. MG Diagnostic Mammo w CAD ANTOINETTE Bilateral CC and MLO view(s) were taken. Prior study comparison: February 07, 2017, bilateral MG diagnostic mammo w CAD ANTOINETTE. January 29, 2016, bilateral MG screening mammo w CAD. The breast tissue is heterogeneously dense. This may lower the sensitivity of mammography. No significant new findings when compared with previous films. These results were verbally communicated with the patient and result sheet given to the patient on 02/13/18. ASSESSMENT: Benign, BI-RAD 2 RECOMMENDATION: Routine screening mammogram of both breasts in 1 year.
== END | disposition home or self-care (01) ==
LOC: RADMAMWWP 10:24
PROVIDERS: ATTEND Family Medicine
DX: N64.52 Nipple discharge (principal)
CPT/HCPCS: 77066

== ENCOUNTER → 2018-06-20 | Outpatient (CLI) | payer OTHER ==
--- NOTE | 2018-06-20 14:02 | CT ---
EXAMINATION TYPE: CT lumbar spine wo con DATE OF EXAM: 06/20/2018 COMPARISON: HISTORY: Back pain after procedure CT DLP: 403.6 mGycm Automated exposure control for dose reduction was used. An unenhanced CT of the lumbar spine was performed. Bone and soft tissue window settings are submitt ed as well as coronal and sagittal reconstructions. FINDINGS: Streak artifact due to patient's metallic hardware may limit the exam, patient is status post lumbosa cral fusion at L5-S1, transpedicular screws at S1 breach the anterior L1-L2: Posterior broad-based disc bulge causes mild anterior mass effect on the thecal sac. No signif icant central stenosis or foraminal encroachment. L2-L3: Broad-based posterior disc bulge causes mild anterior mass effect thecal sac. No evident centr al canal stenosis or foraminal encroachment. There is facet arthropathy. L3-L4: Broad-based posterior disc bulge causes mild anterior mass effect on the thecal sac. There is facet arthropathy, moderate central canal stenosis. Lateral extension endplate disc complex encroache s somewhat on the foramina, minimal retrolisthesis grade 1 L3-4 contributes to foraminal encroachment and spinal stenosis. L4-L5: Broad-based posterior disc bulge causes mild anterior mass effect on the thecal sac. There is some facet arthropathy change. No significant central stenosis. No evident foraminal encroachment. Th ere is a trefoil appearance of the thecal sac. L5-S1: Intervertebral spacing material suspected. There may be some lateral extension of endplates en croaching towards an foramina, no evident spinal stenosis IMPRESSION: Postop changes. Spinal stenosis greatest at L3-4 degenerative disc disease.
== END | disposition home or self-care (01) ==
LOC: RADCTMAIN 12:26
PROVIDERS: ATTEND Physician Assistant
DX: M48.061 Spinal stenosis, lumbar region without neurogenic claudication (principal); M51.36 Other intervertebral disc degeneration, lumbar region; Z98.1 Arthrodesis status
CPT/HCPCS: 72131

== ENCOUNTER → 2018-10-26 | Outpatient (CLI) | payer OTHER ==
--- NOTE | 2018-10-26 09:41 | US ---
EXAMINATION TYPE: US duplex aorta DATE OF EXAM: 10/26/2018 COMPARISON: CT 08/29/2017 CLINICAL HISTORY: R00.2Palpitations, R07.89Other chest pain. EXAM MEASUREMENTS: Abdominal Aorta: Proximal: 1.9 x 1.8 x 2.0 cm Mid: 1.5 x 1.7 x 1.5 cm Distal: 1.5 x 1.4 x 1.7 cm Bifurcation: RT: 0.6 x 0.7 x 0.8 cm LT: 0.8 x 0.7 x 0.8 cm No sonographic evidence for AAA. IMPRESSION: No sonographic evidence for abdominal aortic aneurysm in the visualized portion of the ab dominal aorta.
== END | disposition home or self-care (01) ==
LOC: RADUSWWP 08:42
PROVIDERS: ATTEND Family Medicine
DX: R07.89 Other chest pain (principal); R00.2 Palpitations; Z82.49 Family history of ischemic heart disease and other diseases of the circulatory system
CPT/HCPCS: 93979

== ENCOUNTER → 2019-05-22 | Outpatient (CLI) | payer OTHER ==
--- NOTE | 2019-05-22 07:55 | US ---
EXAMINATION TYPE: US kidneys/renal and bladder DATE OF EXAM: 05/22/2019 COMPARISON: CT of the lumbar spine dated 06/20/2018 CLINICAL HISTORY: R93.7Abnormal findings on diagno. Patient states having a MRI at her spine doctor a nd showed renal abnormality. EXAM MEASUREMENTS: Right Kidney: 10.5 x 4.3 x 3.5 cm Left Kidney: 10.5 x 4.7 x 4.5 cm Right Kidney: No hydronephrosis or masses seen Left Kidney: Prominent renal pelvis with no hydronephrosis. Bladder: wnl, distended Left Jet seen There is no evidence for hydronephrosis at this point in time. No nephrolithiasis is seen. No suspi cious masses are identified. The urinary bladder is anechoic. Bilateral ureteral jets are not seen. IMPRESSION: No discrete renal mass on ultrasound. Given the renal abnormality on the prior outside MR I three-phase CT is recommended to further evaluate the kidneys.
--- NOTE | 2019-05-22 14:19 | MM ---
Reason for exam: screening (asymptomatic). Last mammogram was performed 1 year and 3 months ago. History: Patient is postmenopausal. Family history of breast cancer in maternal aunt at age 50. Implant Removal of both breasts, 2005. Implants in both breasts, 1996. Physical Findings: A clinical breast exam by your physician is recommended on an annual basis and results should be correlated with mammographic findings. MG Screening Mammo w CAD Bilateral CC and MLO view(s) were taken. Prior study comparison: February 13, 2018, bilateral MG diagnostic mammo w CAD ANTOINETTE. February 07, 2017, bilateral MG diagnostic mammo w CAD ANTOINETTE. The breast tissue is heterogeneously dense. This may lower the sensitivity of mammography. Centrally located asymmetric density right CC view is more defined. Otherwise, no significant change. ASSESSMENT: Incomplete: need additional imaging evaluation, BI-RAD 0 RECOMMENDATION: Special view mammogram of the right breast. (3D) If lesion persists on supplemental views, image directed ultrasound is recommended. [facility] will attempt to contact patient to return for supplemental views and ultrasound if indicated.
== END ==
LOC: RADMAMWWP 06:59
PROVIDERS: ATTEND Family Medicine
DX: Z12.31 Encounter for screening mammogram for malignant neoplasm of breast (principal); R93.429 Abnormal radiologic findings on diagnostic imaging of unspecified kidney
CPT/HCPCS: 76770; 77067

== ENCOUNTER → 2019-06-04 | Outpatient (CLI) | payer OTHER ==
--- NOTE | 2019-06-04 10:17 | MM ---
Reason for exam: additional evaluation requested from abnormal screening. Last mammogram was performed less than 1 month ago. History: Patient is postmenopausal. Family history of breast cancer in maternal aunt at age 50. Implant Removal of both breasts, 2005. Implants in both breasts, 1996. Physical Findings: Nurse did not find any significant physical abnormalities on exam. MG Work Up Mamm w CAD RT Spot compression CC, ML, and CCRM view(s) were taken of the right breast. Prior study comparison: May 22, 2019, bilateral MG screening mammo w CAD. February 13, 2018, bilateral MG diagnostic mammo w CAD ANTOINETTE. The breast tissue is heterogeneously dense. This may lower the sensitivity of mammography. No suspicious abnormality. The previously seen abnormality resolves on additional views and appears as fibroglandular tissue compatible with summation. These results were verbally communicated with the patient and result sheet given to the patient on 06/04/19. ASSESSMENT: Negative, BI-RAD 1 RECOMMENDATION: Return to routine screening mammogram schedule for both breasts.
== END ==
LOC: RADMAMWWP 08:58
PROVIDERS: ATTEND Family Medicine
DX: R92.8 Other abnormal and inconclusive findings on diagnostic imaging of breast (principal)
CPT/HCPCS: 77065

== ENCOUNTER → 2019-06-26 | Outpatient (CLI) | payer OTHER ==
[2019-06-26 17:12] LABS: African American GFR (CKD) >90 (>60 ml/min/1.73 sqM); Blood Urea Nitrogen 11 mg/dL (7-17)
--- NOTE | 2019-06-27 10:40 | CT ---
EXAMINATION TYPE: CT abdomen w con DATE OF EXAM: 06/26/2019 COMPARISON: Prior CT abdomen. Comparison is made with the CT lumbar spine of 06/20/2018 INDICATION: abnormal findings on lumbar scan DLP: 518 mGycm, Automated exposure control for dose reduction was used. CONTRAST: 100 mL of Isovue 300. Study performed with Oral Contrast TECHNIQUE: Axial images were obtained from above the diaphragm to the iliac crests in the axial plane at 5 mm thick sections. Reconstructed images are reviewed on the computer in the coronal plane. FINDINGS: Limited CT sections are obtained the lung bases. The lung bases are clear. CT ABDOMEN: Liver: Normal Spleen: Normal Pancreas: Normal Adrenal glands: The adrenal glands are normal. Gallbladder: Normal Kidneys: No masses are evident. No hydronephrosis is present. No cysts are present. Delayed images were obtained through the kidneys which remain unremarkable. Aorta: Vascular calcification is within the aorta. Inferior vena cava: Normal. Loops of bowel distended with oral contrast normal. Fecal debris is present within the colon. There a re loops of bowel which are incompletely distended or lack oral contrast limiting their evaluation. IMPRESSIONS: 1. Normal CT abdomen
== END | disposition home or self-care (01) ==
LOC: RADCTMAIN 16:07
PROVIDERS: ATTEND Family Medicine
DX: R93.7 Abnormal findings on diagnostic imaging of other parts of musculoskeletal system (principal)
CPT/HCPCS: 82565; 84520; 74160; 36415; Q9967

== ENCOUNTER → 2019-11-15 | Outpatient (CLI) | payer OTHER ==
--- NOTE | 2019-11-15 11:43 | US ---
EXAMINATION TYPE: US venous doppler duplex LE LT DATE OF EXAM: 11/15/2019 11:38 AM COMPARISON: NONE CLINICAL HISTORY: M79.605 Pain in left leg, I83.893. SIDE PERFORMED: Left TECHNIQUE: The lower extremity deep venous system is examined utilizing real time linear array sonog radha with graded compression, doppler sonography and color-flow sonography. VESSELS IMAGED: External Iliac Vein (EIV) Common Femoral Vein Deep Femoral Vein Greater Saphenous Vein * Femoral Vein Popliteal Vein Small Saphenous Vein * Proximal Calf Veins (* superficial vessels) Grayscale, color doppler, spectral doppler imaging performed of the deep veins of the left lower extr emity. There is normal flow, compressibility, vascular waveforms. Left Leg: Negative for DVT IMPRESSION: No sonographic evidence of deep venous thrombosis within the left lower extremity.
== END | disposition home or self-care (01) ==
LOC: RADUSWWP 10:59
PROVIDERS: ATTEND Family Medicine
DX: M79.605 Pain in left leg (principal)

== ENCOUNTER → 2020-03-04 | Outpatient (CLI) | payer OTHER ==
[2020-03-04 16:43] LABS: African American GFR (CKD) >90 (>60 ml/min/1.73 sqM); Blood Urea Nitrogen 13 mg/dL (7-17); Non-African American GFR(CKD) >90 (>60 ml/min/1.73 sqM)
--- NOTE | 2020-03-04 21:37 | CT ---
EXAMINATION TYPE: CT chest w con DATE OF EXAM: 03/04/2020 COMPARISON: Prior chest CT May 09, 2017. HISTORY: Right sided chest pain. CT DLP: 117.8 mGycm. Automated Exposure Control for Dose Reduction was Utilized. TECHNIQUE: CT scan of the thorax is performed following with IV Contrast, patient injected with 100m l mL of Isovue 300. FINDINGS: LUNGS: Mild biapical pleural/parenchymal scarring redemonstrated. Background mild to moderate underly ing emphysematous change. No suspicious focal consolidation or groundglass opacities. There is no pl eural effusion or pneumothorax seen bilaterally. The tracheobronchial tree is patent. MEDIASTINUM: There are no greater than 1 cm hilar or mediastinal lymph nodes. No cardiomegaly is se en. Tiny pericardial effusion inferiorly redemonstrated. Coronary artery calcification is present wh ich is noted marker for underlying coronary artery disease. OTHER: Heterogeneously dense fibroglandular tissue in both breasts is redemonstrated. Exaggerated tho racic kyphosis with prominent spur T11-T12 level effacing anterior thecal sac. Osseous structures hang ewhat demineralized. Collateral draining veins right shoulder level are noted. IMPRESSION: Chronic changes without acute pulmonary process. No new or acute findings seen to accoun t for patient symptoms of right-sided pain.
== END | disposition home or self-care (01) ==
LOC: RADCTMAIN 15:48
PROVIDERS: ATTEND Family Medicine
DX: J98.4 Other disorders of lung (principal); R07.81 Pleurodynia
CPT/HCPCS: 82565; 84520; 71260; 36415; Q9967

== ENCOUNTER → 2020-05-15 | Outpatient (CLI) | payer OTHER ==
--- NOTE | 2020-05-19 12:15 | MM ---
Reason for exam: screening (asymptomatic). Last mammogram was performed 11 months ago. History: Patient is postmenopausal. Family history of breast cancer in maternal aunt at age 50. Implant Removal of both breasts, 2005. Implants in both breasts, 1996. Physical Findings: A clinical breast exam by your physician is recommended on an annual basis and results should be correlated with mammographic findings. MG 3D Screening Mammo W/Cad Bilateral CC and MLO view(s) were taken. Prior study comparison: June 04, 2019, right breast MG work up mamm w CAD RT. May 22, 2019, bilateral MG screening mammo w CAD. February 07, 2017, bilateral MG diagnostic mammo w CAD ANTOINETTE. The breast tissue is heterogeneously dense. This may lower the sensitivity of mammography. There are benign appearing round calcifications in the right breast. There is no discrete abnormality. ASSESSMENT: Benign, BI-RAD 2 RECOMMENDATION: Routine screening mammogram of both breasts in 1 year. Consider ultrasound if true palpable at right axilla.
== END | disposition home or self-care (01) ==
LOC: RADMAMWWP 13:18
PROVIDERS: ATTEND Family Medicine
DX: Z12.31 Encounter for screening mammogram for malignant neoplasm of breast (principal)
CPT/HCPCS: 77063; 77067

== ENCOUNTER 2021-05-26 11:19 | Day surgery (SDC) | payer OTHER ==
[2021-05-25 16:32] VITALS: BMI 18.9
[~2021-05-26 11:19] MED LIST changes: +ACETAMINOPHEN TAB 500 MG TAB PO PRN; +DEXAMETHASONE SOD PHOSPHATE 4 MG/ML 1 ML VIAL IV ONE; +HEPARIN SODIUM,PORCINE/PF 5,000 UNIT/0.5 ML SYRINGE SQ PRN; +HYDROmorphone 0.5 MG/0.5 ML SYRINGE IVP PRN; +LIDOCAINE 1% (10MG/ML) FOR IV START INTRADERMA PRN; +MIDAZOLAM 2 MG/2 ML VIAL IV PRN; +ONDANSETRON 4 MG/2 ML VIAL IVP ONE; +Pre Op ABX Message 1 EACH MISC MISCELLANE ONE
[2021-05-26 11:54] VITALS: TEMP 97.4
[2021-05-26] MEDS ORDERED: LACTATED RINGERS 1,000 ML IV ONE (11:54)
--- NOTE | 2021-05-26 12:16 | P.GSHP ---
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 She presents today for wide local excision. Past Medical History Past Medical History: Blood Disorder, Cancer, COPD, Musculoskeletal Disorder, Skin Disorder, Thyroid Disorder Additional Past Medical History / Comment(s): factor 5 deficiency, raynauds, slight emphysema (no meds), back pain. States leukocytopenia-sees Dr. Beck. Osteopenia, skin cancer. Sick with sinus infection, treated w/ AB Rx, completed, had CXR 05/25/21 was nl. History of Any Multi-Drug Resistant Organisms: MRSA Date of last positivie culture/infection: 2005 MDRO Source:: breast Past Surgical History: Appendectomy, Back Surgery, Breast Surgery, Section, Hysterectomy, Orthopedic Surgery, Tonsillectomy Additional Past Surgical History / Comment(s): BREAST IMPLANTS, later REMOVED, LAPAROSCOPIC SURGERY x3 for endometriosis, LEFT HIP SURGERY, FUSION L-5 & S-1., X2. Past Anesthesia/Blood Transfusion Reactions: No Reported Reaction Additional Past Anesthesia/Blood Transfusion Reaction / Comment(s): "Feels cold" due to Raynauds. Smoking Status: Former smoker - Past Family History Sister(s) Additional Family Medical History / Comment(s): FACTOR 5 Mother Family Medical History: Cancer Additional Family Medical History / Comment(s): FACTOR 5 (MOTHERS SIBLINGS ALSO HAVE FACTOR 5) Medications and Allergies Home Medications Medication Instructions Recorded Confirmed Type Methadone [Dolophine] 10 mg PO TID PRN 01/19/14 05/25/21 History Levothyroxine Sodium [Synthroid] 88 mcg PO TUTHSA 04/20/16 05/25/21 History Levothyroxine Sodium [Synthroid] 100 mcg PO SUMOWEFR 04/20/16 05/25/21 History Aspirin EC [Ecotrin Low Dose] 81 mg PO DAILY 08/31/17 05/25/21 History Gabapentin [Neurontin] 100 mg PO DAILY 08/31/17 05/25/21 History polyethylene glycoL 3350 [Miralax] 17 gm PO DAILY PRN 08/31/17 05/25/21 History Acetaminophen [Tylenol Arthritis] 650 mg PO Q6H PRN 05/14/21 05/25/21 History Ibuprofen [Motrin] 600 mg PO Q6HR PRN 05/14/21 05/25/21 History Loratadine [Claritin] 10 mg PO DAILY 05/25/21 05/25/21 History Allergies Allergy/AdvReac Type Severity Reaction Status Date / Time latex Allergy Rash/Hives Verified 05/25/21 16:02 prochlorperazine edisylate AdvReac FEELS LIKE Verified 05/25/21 16:02 [From Compazine] SKIN IS CRAWLING" prochlorperazine maleate AdvReac Unknown Verified 05/25/21 16:02 [From Compazine] Surgical - Exam Vital Signs Temp Pulse Resp BP Pulse Ox 97.4 F L 114 H 18 115/72 99 05/26/21 11:52 05/26/21 11:52 05/26/21 11:52 05/26/21 11:52 05/26/21 11:52 - General well developed, well nourished, no distress - Eyes PERRL - ENT normal pinna - Neck no masses - Respiratory normal expansion - Cardiovascular Rhythm: regular - Abdomen Abdomen: soft, non tender - Integumentary Centimeters squamous cell carcinoma left hip Assessment and Plan Assessment: Squamous Cell carcinoma left hip. We'll perform wide local excision.
[2021-05-26] MEDS ORDERED: ONDANSETRON 4 MG/2 ML VIAL IVP ONE (12:35)
[2021-05-26] MEDS ORDERED: MIDAZOLAM 2 MG/2 ML VIAL IVP ONE (12:40)
[2021-05-26] MEDS ORDERED: fentaNYL (PF) 50 MCG/ML 2 ML AMP ONE (12:59)
[2021-05-26] MEDS ORDERED: LIDOCAINE 1% INJ 10MG/ML (20 ML MDV) ONE (12:59)
[2021-05-26] MEDS ORDERED: MIDAZOLAM 2 MG/2 ML VIAL ONE (12:59)
[2021-05-26] MEDS ORDERED: PROPOFOL 10 MG/ML 20 ML VIAL IV ONE (12:59)
[2021-05-26] MEDS ORDERED: KETAMINE 10 MG/ML 20 ML VIAL ONE (12:59)
[2021-05-26] MEDS ORDERED: BUPIVACAINE (PF) 0.5% 30 ML VIAL SQ ONE (13:18)
[2021-05-26] MEDS ORDERED: SODIUM CHLORIDE 0.9% 50 ML with ceFAZolin 1,000 MG IV ONE ×2 (13:18)
--- NOTE | 2021-05-26 13:37 | P.OP ---
Date of Procedure: 05/26/21 Preoperative Diagnosis: Squamous cell carcinoma left hip Postoperative Diagnosis: Squamous cell carcinoma left hip Procedure(s) Performed: Wide local excision squamous cell carcinoma left hip Anesthesia: MAC, local Surgeon: Ramez Dee Pathology: other (Squamous cell carcinoma left) Condition: stable Disposition: PACU Description of Procedure: The patient's placed on the operative table in the supine position. She received IV sedation. Her left groin was prepped and draped usual fashion. The patient's skin lesion measuring approximately 2 cm diameter. Elliptical skin incision was made around the lesion. The specimen measured 3 x 4 cm. A suture tag was placed on the medial portion of the specimen. A large cautery used to divide subcutaneous tissue. The specimens of pathology. Since was entered with 3-0 Monocryl suture. Dermabond was applied. Patient top she will was sent to recovery room in stable condition.
[2021-05-26 13:49] VITALS: RESP 16
[2021-05-26 14:32] VITALS: BP 96/61; PULSE 70
== END 2021-05-26 14:44 | disposition home or self-care (01) ==
LOC: OR 11:19
PROVIDERS: ATTEND Surgery
DX: C44.729 Squamous cell carcinoma of skin of left lower limb, including hip (principal); D68.2 Hereditary deficiency of other clotting factors; E07.9 Disorder of thyroid, unspecified; Z87.891 Personal history of nicotine dependence; I73.00 Raynaud's syndrome without gangrene; J43.9 Emphysema, unspecified; M85.80 Other specified disorders of bone density and structure, unspecified site; Z79.899 Other long term (current) drug therapy; Z88.8 Allergy status to other drugs, medicaments and biological substances; Z91.040 Latex allergy status
CPT/HCPCS: 81025; 88305; 11404; J2250; J2405; J0690; J2001; J3010; J2704; J1644

== ENCOUNTER → 2021-06-18 | Outpatient (CLI) | payer OTHER ==
--- NOTE | 2021-06-18 15:15 | CT ---
EXAMINATION TYPE: CT lumbar spine w con DATE OF EXAM: 06/18/2021 COMPARISON: 06/20/2018 HISTORY: 45-year-old female M47.816, Low back pain with history of fusion TECHNIQUE: Contiguous axial scanning of the lumbar spine performed with IV Contrast, patient injected with 100 mL of Isovue 300. Coronal/sagittal reconstructions performed. CT DLP: 447.6 mGycm Automated exposure control for dose reduction was used. FINDINGS: Osteopenia. Vertebral body heights are preserved. Status post L5-S1 posterior and interbody fusion. Degenerative grade 1 retrolisthesis L2-L3, L3-L4, L4-L5. Hypertrophic facet arthropathy lower lumbar spine. Mild degenerative disc disease throughout with disc bulging. There is a mild spinal canal stenosis at T11-T12 secondary to disc osteophyte complex. There is likel y flattening of the ventral cord at this level. Posterior disc bulge along with ligamentum flavum thickening at L3-L4 continues to mild spinal canal stenosis. On the left, changes result in [id number] neural foraminal narrowing at L3-L4 and mild at L4-L5 and L5-S1. On the right, changes result in moderate neural foraminal narrowing at L5-S1 and mild to moderate at L3-L4. IMPRESSION: 1. STATUS POST L5-S1 POSTERIOR AND INTERBODY FUSION. 2. FACET ARTHROPATHY MID TO LOWER LUMBAR SPINE AND MILD DEGENERATIVE DISC DISEASE THROUGHOUT. 3. DEGENERATIVE GRADE 1 RETROLISTHESIS OF L2-L3, L3-L4, AND L4-L5. 4. DISC OSTEOPHYTE COMPLEX AT T11-T12 CAUSES A MILD SPINAL CANAL STENOSIS. POSTERIOR DISC BULGE AND L IGAMENTUM FLAVUM THICKENING AT L3-L4 ALSO CONTRIBUTES TO MILD SPINAL CANAL STENOSIS AT THIS LEVEL. 5. VARIABLE MILD TO MODERATE FORAMINAL STENOSES OUTLINED ABOVE.
== END | disposition home or self-care (01) ==
LOC: RADCTMAIN 10:50
PROVIDERS: ATTEND Psychiatry & Neurology Neurology
DX: M51.36 Other intervertebral disc degeneration, lumbar region (principal); M43.16 Spondylolisthesis, lumbar region; M51.26 Other intervertebral disc displacement, lumbar region; M47.816 Spondylosis without myelopathy or radiculopathy, lumbar region; M48.061 Spinal stenosis, lumbar region without neurogenic claudication; Z98.1 Arthrodesis status
CPT/HCPCS: 72132; Q9967

== ENCOUNTER → 2021-07-07 | Outpatient (CLI) | payer OTHER ==
--- NOTE | 2021-07-08 12:39 | MM ---
Reason for exam: clinical finding. Last mammogram was performed 1 year and 2 months ago. History: Patient is postmenopausal and history of other cancer. Family history of breast cancer in maternal aunt at age 50. Implant Removal of both breasts, 2005. Implants in both breasts, 1996. Indicated problem(s): lump or thickening in the left breast. Physical Findings: Nurse did not find any significant physical abnormalities on exam. MG 3D Diag Mammo W/Cad ANTOINETTE Bilateral CC and MLO view(s) were taken. Prior study comparison: May 15, 2020, bilateral MG 3d screening mammo w/cad. February 13, 2018, bilateral MG diagnostic mammo w CAD ANTOINETTE. February 07, 2017, bilateral MG diagnostic mammo w CAD ANTOINETTE. The breast tissue is heterogeneously dense. This may lower the sensitivity of mammography. No significant new findings when compared with previous films. These results were verbally communicated with the patient and result sheet given to the patient on 07/07/21. ASSESSMENT: Benign, BI-RAD 2 RECOMMENDATION: Routine screening mammogram of both breasts. Manage on a clinical basis with regard to breast tenderness.
== END | disposition home or self-care (01) ==
LOC: RADMAMWWP 14:03
PROVIDERS: ATTEND Family Medicine
DX: R92.2 Inconclusive mammogram (principal); Z80.3 Family history of malignant neoplasm of breast; Z85.89 Personal history of malignant neoplasm of other organs and systems; Z78.0 Asymptomatic menopausal state
CPT/HCPCS: 77066; G0279; 77062

== ENCOUNTER → 2021-09-07 | Outpatient (CLI) | payer OTHER ==
--- NOTE | 2021-09-07 11:59 | CT ---
EXAMINATION TYPE: CT lumbar spine wo con DATE OF EXAM: 09/07/2021 11:40 AM COMPARISON: 06/18/2021 HISTORY: Low back pain and lump post pain injections done on 08/24 and 09/02. CT DLP: 389.2 mGycm Automated exposure control for dose reduction was used. Unenhanced CT of the lumbar spine was performed. Bone and soft tissue window settings are submitted as well as coronal and sagittal reconstructions. L1-L2: Normal disc space height. No disc herniation protrusion or central stenosis. No facet joint arthropathy. No evidence for foraminal encroachment. L2-L3: Mild degenerative disc space narrowing. Posterior disc bulge with mild effacement ventral thecal sac. Bilateral lateral recess stenosis. No e vidence for central stenosis or disc herniation. L3-L4: Mild to moderate degenerative disc space narrowing. Posterior disc bulge with hypertrophy of t he ligamentum flavum and facet joint arthropathy resulting in mild central stenosis. L4-L5: Mild degenerative disc space narrowing. Posterior disc bulge with mild effacement ventral thecal sac. Bilateral lateral recess stenosis. No e vidence for central stenosis or disc herniation. L5-S1: Postoperative changes of lumbar laminectomy and fusion at L5-S1. Pedicular screws are limited evaluation given streak artifact. IMPRESSION: 1. Postoperative changes as noted. 2. Central stenosis at L3-4. Bilateral lateral recess stenosis at L2-3 and L4-L5.
== END | disposition home or self-care (01) ==
LOC: RADCTMAIN 11:21
PROVIDERS: ATTEND Psychiatry & Neurology Neurology
DX: M54.50 Low back pain, unspecified (principal); M48.061 Spinal stenosis, lumbar region without neurogenic claudication
CPT/HCPCS: 72131

== ENCOUNTER → 2022-04-22 | Outpatient (CLI) | payer OTHER ==
--- NOTE | 2022-04-22 15:01 | US ---
EXAMINATION TYPE: US venous doppler duplex LE RT DATE OF EXAM: 04/22/2022 2:28 PM COMPARISON: CLINICAL HISTORY: M25.571 ACUTE RT ANKLE PAIN, R20.2 PARASTHESIA RT LEG. right leg pain that came on suddenly. No redness or swelling. On aspirin. Factor 5. SIDE PERFORMED: Right TECHNIQUE: The lower extremity deep venous system is examined utilizing real time linear array sonog radha with graded compression, doppler sonography and color-flow sonography. VESSELS IMAGED: Common Femoral Vein Deep Femoral Vein Greater Saphenous Vein * Femoral Vein Popliteal Vein Small Saphenous Vein * Proximal Calf Veins (* superficial vessels) Right Leg: Negative for DVT IMPRESSION: No evidence of DVT
== END | disposition home or self-care (01) ==
LOC: RADUSWWP 13:41
PROVIDERS: ATTEND Family Medicine
DX: M25.571 Pain in right ankle and joints of right foot (principal)
CPT/HCPCS: 93922

== ENCOUNTER → 2022-07-18 | Outpatient (CLI) | payer OTHER ==
--- NOTE | 2022-07-19 17:23 | MM ---
Reason for Exam: Screening (asymptomatic). Last mammogram was performed 1 year(s) and 1 month(s) ago. Patient History: Menarche at age 14. First Full-Term at age 17. Left ovary removed at age 28. Right ovary removed at age 28. Hysterectomy at age 26. Postmenopausal. Other cancer. 2005, Bilateral Implant Removal. 1996, Bilateral Implants. Maternal aunt had breast cancer, age 50. Risk Values: Marlee 5 year model risk: 0.6%. NCI Lifetime model risk: 6.1%. Prior Study Comparison: 06/04/2019 Right Diagnostic Mammogram, [facility]. 05/15/2020 Bilateral Screening Mammogram, [facility]. 07/07/2021 Bilateral Diagnostic Mammogram, [facility]. Tissue Density: The breast tissue is heterogeneously dense. This may lower the sensitivity of mammography. Findings: Analyzed By CAD. Pattern appears symmetrical and stable. A benign calcification in the right breast. No significant interval changes are evident No suspicious groups of microcalcifications, spiculated or lobular masses, architectural distortion or other secondary signs of malignancy are mammographically apparent. Overall Assessment: Benign, BI-RAD 2 Management: Screening Mammogram of both breasts in 1 year. A negative mammogram report should not preclude additional follow up of suspicious palpable abnormalities. Patient should continue monthly self breast exam. A clinical breast exam by your physician is recommended on an annual basis and results should be correlated with mammographic findings. Electronically signed and approved by: Yogi Mcdaniel D.O. Radiologis
== END | disposition home or self-care (01) ==
LOC: RADMAMWWP 10:08
PROVIDERS: ATTEND Family Medicine
DX: Z12.31 Encounter for screening mammogram for malignant neoplasm of breast (principal); Z78.0 Asymptomatic menopausal state; Z80.3 Family history of malignant neoplasm of breast; Z90.721 Acquired absence of ovaries, unilateral
CPT/HCPCS: 77063; 77067

== ENCOUNTER → 2022-08-31 | Outpatient (CLI) | payer OTHER ==
--- NOTE | 2022-08-31 09:25 | US ---
EXAMINATION TYPE: US abdomen complete DATE OF EXAM: 08/31/2022 COMPARISON: US & CT CLINICAL HISTORY: R10.13 R42. Pt states "vibrating" in epigastric area TECHNIQUE: Multiple sonographic images of the abdomen are obtained. FINDINGS: EXAM MEASUREMENTS: Liver Length: 16.8 cm Gallbladder Wall: 0.1 cm CBD: 0.5 cm Spleen: 9.8 cm Right Kidney: 10.9 x 4.2 x 4.7 cm Left Kidney: 10.7 x 4.9 x 4.8 cm FIELD SERVICE COORDINATOR NOTES: Difficult exam, pt having back pain, moving during exam Pancreas: wnl Liver: wnl Gallbladder: wnl, pt not rolled in LLD position due to back pain Evidence for sonographic Longoria's sign: No CBD: wnl Spleen: wnl Right Kidney: wnl Left Kidney: wnl Upper IVC: wnl Abd Aorta: wnl No abnormality visualized at this time The liver is homogenous. The intrahepatic portion of the IVC and proximal abdominal aorta are within normal limits. There is no evidence of cholelithiasis. Common bile duct is unremarkable. The visu alized portions of the pancreas are homogenous. The spleen is unremarkable. Kidneys are symmetric a nd free of hydronephrosis. No renal lesions are seen. IMPRESSION: Any no discrete abnormality seen.
--- NOTE | 2022-08-31 09:30 | US ---
EXAMINATION TYPE: US carotid duplex BILAT DATE OF EXAM: 08/31/2022 COMPARISON: NONE CLINICAL HISTORY: R10.13 R42. Pt states transient swelling within neck, more on left side TECHNIQUE: Carotid duplex ultrasound examination. Indirect Doppler criteria was utilized. FINDINGS: EXAM MEASUREMENTS: RIGHT: Peak Systolic Velocity (PSV) cm/sec ----- Right CCA: 136.0 ----- Right ICA: 131.7 ----- Right ECA: 140.4 ICA/CCA ratio: 1.0 RIGHT: End Diastole cm/sec ----- Right CCA: 32.8 ----- Right ICA: 35.7 ----- Right ECA: 40.1 LEFT: Peak Systolic Velocity (PSV) cm/sec ----- Left CCA: 131.5 ----- Left ICA: 121.1 ----- Left ECA: 122.4 ICA/CCA ratio: 0.9 LEFT: End Diastole cm/sec ----- Left CCA: 35.7 ----- Left ICA: 25.4 ----- Left ECA: 22.8 VERTEBRALS (direction of flow): Right Vertebral: Antegrade Left Vertebral: Antegrade Rhythm: Normal SHIPPING CLERK NOTES: No significant stenosis seen IMPRESSION: No evidence for hemodynamically significant stenosis. Criteria for Assigning % of Stenosis / Diameter reduction (Estimation based on the indirect measurements of the internal carotid artery velocities (ICA PSV). 1. Normal (no stenosis)=ICA PSV < 125 cm/s: ratio < 2.0: ICA EDV<40 cm/s. 2. Less than 50% stenosis=ICA PSV < 125 cm/s: ratio < 2.0: ICA EDV<40 cm/s. 3. 50 to 69% stenosis=ICA PSV of 125 to 230 cm/s: ration 2.0 ? 4.0: ICA EDV 40-100 cm/s. 4. Greater than 70% stenosis to near occlusion= ICA PSV > 230 cm/s: ratio > 4.0: ICA EDV > 100 cm/s. 5. Near occlusion= ICA PSV velocities may be low or undetectable: variable ratio and ICA EDV. 6. Total occlusion=unable to detect flow.
== END | disposition home or self-care (01) ==
LOC: RADUSWWP 06:47
PROVIDERS: ATTEND Family Medicine
DX: R10.13 Epigastric pain (principal); R42 Dizziness and giddiness
CPT/HCPCS: 76700; 93880

== ENCOUNTER → 2022-09-07 | Outpatient (CLI) | payer OTHER ==
--- NOTE | 2022-09-07 14:56 | NM ---
EXAMINATION TYPE: NM bone scan whole body DATE OF EXAM: 09/07/2022 2:38 PM CLINICAL INDICATION:Female, 47 years old with history of M89.8X9; bilateral lower extremity pain exte nding from hips to legs. COMPARISON: None TECHNIQUE: Intravenous administration 21.7 mCi Tc 99m MDP followed by multiple scintigraphic images o f the appendicular and axial skeleton. Additionally, small field of view planar imaging of the thorax , pelvis and knees/tib-fib were obtained. Images acquired 3 hours post injection. FINDINGS: Mild increased uptake within the suspected locations of the pedicles at L5. There is increased uptake within the bilateral shoulder, sternoclavicular, and sacroiliac joints consistent with degenerative changes. No other photopenic areas or areas of increased activity are identified. Physiologic radiotracer activity is demonstrated in the kidneys and bladder. IMPRESSION: Mild uptake within the pedicles at L5 suggested. Consider further evaluation with MRI could be perfor med.
== END | disposition home or self-care (01) ==
LOC: RADNMMAIN 10:15
PROVIDERS: ATTEND Family Medicine
DX: M89.8X9 Other specified disorders of bone, unspecified site (principal)
CPT/HCPCS: 78306; A9503

== ENCOUNTER → 2022-11-30 | Outpatient (CLI) | payer OTHER ==
--- NOTE | 2022-11-30 11:36 | US ---
EXAMINATION TYPE: US pelvic complete DATE OF EXAM: 11/30/2022 COMPARISON: NONE CLINICAL HISTORY: R10.2 Pelvic PAIN. Pain total hysterectomy TECHNIQUE: Transabdominal (TA EXAM MEASUREMENTS: Uterus: Surgically absent Endometrial Stripe: Surgically absent Right Ovary: Surgically absent Left Ovary: Surgically absent 1. Uterus: Surgically absent 2. Endometrium: Surgically absent 3. Right Ovary: Surgically absent 4. Left Ovary: Surgically absent 5. Bilateral Adnexa: wnl 6. Posterior cul-de-sac: wnl IMPRESSION: Unremarkable postoperative pelvis
== END | disposition home or self-care (01) ==
LOC: RADUSWWP 10:48
PROVIDERS: ATTEND Family Medicine
DX: R10.2 Pelvic and perineal pain (principal)
CPT/HCPCS: 76857

== ENCOUNTER → 2022-12-22 | Outpatient (CLI) | payer OTHER ==
--- NOTE | 2022-12-22 12:43 | BD ---
EXAMINATION TYPE: Axial Bone Density DATE OF EXAM: 12/22/2022 CLINICAL HISTORY: 47 years old Female. ICD-10 CODE: M85.80 Osteopenia Height: 69 Weight: 135.5 FRAX RISK QUESTIONS: Alcohol (3 or more units per day): no Family History (Parent hip fracture): mother Glucocorticoids (More than 3mos): Injection for pain History of Fracture in Adulthood: no Secondary Osteoporosis: 1. Type 1 Diabetes: no 2. Hyperthyroidism: no 3. Menopause before 45: yes 4. Malnutrition: no 5. Chronic liver disease: no Rheumatoid Arthritis: no Current Tobacco Use: no RISK FACTORS HISTORY OF: Hip Fracture (Right/Left): no Spine Fracture: no History of Wrist Fracture: no Surgery to Spine/Hip(right/left)/Wrist (right/left): L-spine When age 26 Family History of Osteoporosis: Mother, Maternal Grandmother Active: no Diet low in dairy products/other sources of calcium: yes Postmenopausal woman: yes Take estrogen and/or progesterone medications: no Lost more than 2 inches in height since high school: yes Frequent falls: no Poor Health: no Hyperparathyroidism: no Adrenal Insufficiency: no MEDICATIONS: Prednisone or other steroids: Injections for pain 9 times past year Thyroid Medications: Synthroid How Long: past 11 years Osteoporosis Medications: no Additional Medications: pain meds, synthroid, Additional History: EXAM MEASUREMENTS: Bone mineral density about the R hip (g/cm2): 0.726 Bone mineral density about the L hip (g/cm2): 0.717 T Score values are as follows: -----R Neck: -2.1 -----L Neck: -2.4 -----R Total: -2.2 -----L Total: -2.3 Z Score values are as follows: -----R Neck: -1.3 -----L Neck: -1.6 -----R Total: -1.7 -----L Total: -1.8 Bone mineral density has: decreased -11.1 % since study of: 05/08/2014 FRAX%s: The graph provided illustrates a 9.5% chance for a major osteoporotic fx and a 1.3% chance fo r the hips probability for fx in 10 years time. IMPRESSION: Osteopenia (T Score between -2.5 and -1). There is slightly increased risk of fracture and the patient may be considered for treatment. Re-Screen 2-5 years. NOTE: T-SCORE=SD OF THE YOUNG ADULT MEAN.
== END | disposition home or self-care (01) ==
LOC: RADBDWWP 11:04
PROVIDERS: ATTEND Family Medicine
DX: M85.89 Other specified disorders of bone density and structure, multiple sites (principal); Z78.0 Asymptomatic menopausal state
CPT/HCPCS: 77080

== ENCOUNTER → 2023-08-15 | Outpatient (CLI) | payer OTHER ==
--- NOTE | 2023-08-15 11:01 | US ---
EXAMINATION TYPE: US groin LT DATE OF EXAM: 08/15/2023 COMPARISON: NONE CLINICAL INDICATION: Female, 48 years old with history of left groin lump x 6 months. 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 TECHNIQUE: FINDINGS: Ship Engineer notes: Irregular bony surface anterior left pubic symphysis = 1.6 x 1.0 x 1.6 cm with adj acent vascularity. Ship Engineer notes: Lymph nodes noted left anterior hip/upper thigh at area of previous area of cancer removal. On the provided images, these lymph nodes are small measuring 8 mm and 5 mm. IMPRESSION: 1. Bony irregularity and suggestion of some fluid at the left groin area of concern. Unclear if this corresponds to osteitis pubis or the region of the adductor insertion. If symptoms persist, consider further CT or MRI pelvis evaluation. 2. A couple small, benign-appearing lymph nodes in the left internal region measuring 8 mm and 5 mm.
--- NOTE | 2023-08-16 15:44 | MM ---
Reason for Exam: Screening (asymptomatic). Last mammogram was performed 1 year(s) and 1 month(s) ago. Patient History: Menarche at age 14. First Full-Term at age 17. Left ovary removed at age 28. Right ovary removed at age 28. Hysterectomy at age 26. Postmenopausal. Other cancer. 2005, Bilateral Implant Removal. 1996, Bilateral Implants. Maternal aunt had breast cancer, age 50. Risk Values: Marlee 5 year model risk: 0.6%. NCI Lifetime model risk: 6.1%. Prior Study Comparison: 05/15/2020 Bilateral Screening Mammogram, [facility]. 07/07/2021 Bilateral Diagnostic Mammogram, [facility]. 07/18/2022 Bilateral MG 3D screening mammo w/cad, [facility]. Tissue Density: The breast tissue is heterogeneously dense. This may lower the sensitivity of mammography. Findings: Analyzed By CAD. Pattern appears symmetrical and stable. Benign calcifications right breast. No significant interval change is evident. No suspicious groups of microcalcifications, spiculated or lobular masses, architectural distortion or other secondary signs of malignancy are mammographically apparent. Overall Assessment: Benign, BI-RAD 2 Management: Screening Mammogram of both breasts in 1 year. A negative mammogram report should not preclude additional follow up of suspicious palpable abnormalities. Patient should continue monthly self breast exam. A clinical breast exam by your physician is recommended on an annual basis and results should be correlated with mammographic findings. Electronically signed and approved by: Yogi Mcdaniel D.O. Radiologis
== END | disposition home or self-care (01) ==
LOC: RADUSWWP 07:09
PROVIDERS: ATTEND Family Medicine
DX: Z12.31 Encounter for screening mammogram for malignant neoplasm of breast (principal); R53.83 Other fatigue; Z78.0 Asymptomatic menopausal state; Z80.3 Family history of malignant neoplasm of breast
CPT/HCPCS: 77067

== ENCOUNTER → 2024-06-27 | Outpatient (CLI) | payer OTHER ==
--- NOTE | 2024-06-27 14:56 | CT ---
EXAMINATION TYPE: CT abdomen pelvis w con CT DLP: 804 mGycm, Automated exposure control for dose reduction was used. DATE OF EXAM: 06/27/2024 8:35 AM COMPARISON: CT abdomen 06/26/2019, left groin ultrasound 08/15/2023, pelvic ultrasound 11/30/2022. CLINICAL INDICATION:Female, 48 years old with history of R10.13 EPIGASTRIC PAIN; Epigastric pain TECHNIQUE: Standard CT of the abdomen and pelvis following the administration of 100 cc of Isovue 3 00 IV contrast material and oral contrast. Coronal and sagittal reformats were performed. FINDINGS: LOWER CHEST: Unremarkable ABDOMEN LIVER: Unremarkable GALLBLADDER AND BILE DUCTS: Unremarkable. PANCREAS: Unremarkable. SPLEEN: Unremarkable. ADRENAL GLANDS: Unremarkable. KIDNEYS AND URETERS: No evidence of hydronephrosis or renal calculus. The kidneys enhance symmetrical ly. Prominent bilateral extra renal pelvises. Contrast is demonstrated within both collecting systems on the delayed phase. PELVIS BLADDER: Unremarkable REPRODUCTIVE: Postsurgical changes from hysterectomy. ABDOMEN & PELVIS STOMACH AND BOWEL: Stomach and duodenum are unremarkable. No focal bowel wall thickening or surroundi ng inflammatory changes. Moderate colonic stool burden. Enteric contrast is reaches the ascending col on. The appendix is not identified however no significant inflammatory changes within the right lower quadrant. No evidence of bowel obstruction. PERITONEUM: No evidence of pneumoperitoneum or free fluid. VASCULATURE: Mild atherosclerotic calcifications are present throughout the abdominal aorta and its b ranches. No evidence of aortic aneurysm. MUSCULOSKELETAL: No acute osseous abnormalities. Postsurgical changes from lumbar fusion L4-L5 with d isc fusion cage. LYMPH NODES: No evidence for lymphadenopathy. SOFT TISSUE/ABDOMINAL WALL: Unremarkable IMPRESSION: 1. No acute abdominal/pelvic process. 2. Moderate colonic stool burden. [facility], , 06/27/2024 1:04 PM
== END ==
LOC: RADCTMAIN 06:24
PROVIDERS: ATTEND Internal Medicine Gastroenterology
DX: R10.13 Epigastric pain (principal)
CPT/HCPCS: 74177

== ENCOUNTER → 2024-07-19 | Outpatient (CLI) | payer OTHER ==
--- NOTE | 2024-07-19 10:28 | CT ---
EXAMINATION TYPE: CT cervical spine wo con CT DLP: 333.5 mGycm, Automated exposure control for dose reduction was used. DATE OF EXAM: 07/19/2024 10:14 AM COMPARISON: MR cervical spine 10/27/2016. CLINICAL INDICATION:Female, 49 years old with history of M51.26 M47.816 M50.20 M47.812 M51.24 M54.6; PHH, CHRONIC PAIN TECHNIQUE: Axial CT images from the skull base to the inferior aspect of T2 we obtained without intra venous contrast. Coronal and sagittal reformatted images were also reviewed. FINDINGS: Fracture: None. Osseous structures: Unremarkable Vertebral alignment: Within normal limits. Spinal canal/Neural Foramina: Broad-based disc bulge at C2-C3 without significant effacement of the anterior thecal sac. No neural foraminal stenosis at this level. Broad-based disc bulge at C3-C4 with mild effacement of anterior thecal sac. Uncovertebral joint hype rtrophy. Minimal bilateral neural foraminal narrowing. Broad-based disc bulge with uncovertebral joint hypertrophy at C4-C5. Mild effacement of the anterior thecal sac. Minimal bilateral neural foraminal narrowing. No significant neural foraminal or spinal canal stenosis at C5-C6. No significant neural foraminal or spinal canal stenosis at C6-C7. No significant neural foraminal or spinal canal stenosis at C7-T1. Neck soft tissues: Prevertebral soft tissues are within normal limits. Other: The airway is patent. The lung apices are clear. IMPRESSION: 1. No evidence of cervical spine fracture. 2. Mild multilevel degenerative disc disease and uncovertebral joint hypertrophy as described above. [facility], , 07/19/2024 10:26 AM
--- NOTE | 2024-07-19 10:41 | CT ---
EXAMINATION TYPE: CT thor lumbar spine wo con CT DLP: 1059.5 mGycm, Automated exposure control for dose reduction was used. DATE OF EXAM: 07/19/2024 10:10 AM CLINICAL INDICATION:Female, 49 years old with history of M51.26 M47.816 M50.20 M47.812 M51.24 M54.6; CHRONIC PAIN COMPARISON: CT abdomen and pelvis 06/27/2024, nuclear medicine bone scan 09/07/2022, CT lumbar spine 09/07/2021, 06/18/2021, 06/20/2018, CT chest 05/09/2017, MR thoracic spine 03/29/2016. TECHNIQUE: Axial images of the thoracic and lumbar spine were obtained without contrast. Coronal and sagittal reformats were performed. CT Contrast: Contrast used: none. Oral contrast used: none. FINDINGS: Thoracic: The thoracic vertebral bodies have preserved heights and alignment. Posterior disc osteophyte comple x at T11-T12 resulting in mild central canal stenosis. There is mild left neural foraminal stenosis. The right neural foramen is patent. The remaining thoracic intervertebral discs and osseous structure s have normal appearance without significant neural foraminal or central canal stenosis. Lumbar: Alignment: There are 5 lumbar type vertebral bodies within normal alignment. Bone: Postsurgical changes from posterior fusion with bilateral pedicle screws and rods involving L5 -S1 with disc spacer. Hardware create streak artifact which limits evaluation. No evidence of fractur e is identified. Discs: T12-L1: No spinal canal or neural foraminal stenosis is identified. L1-L2: No spinal canal or neural foraminal stenosis is identified. L2-L3: Broad-based disc bulge with bilateral facet arthropathy contributing to minimal to mild centra l canal stenosis. No significant neural foraminal stenosis. L3-L4: Broad-based disc bulge with bilateral ligamentum flavum buckling and bilateral facet arthropat hy contributing to mild central canal stenosis. Mild left neural foraminal stenosis. There is moderat e right neural foraminal stenosis with an osteophyte projecting into the left neural foramen which is stable from prior exam. L4-L5: Broad-based disc bulge with bilateral facet arthropathy contributing to minimal central canal stenosis. No significant neural foraminal stenosis. L5-S1: Postsurgical changes with streak artifact which limits evaluation. Hardware appears intact and appropriately aligned. No gross evidence of significant central canal or neuroforaminal stenosis. Other: Stable left kidney 1.0 cm hyperdense lesion likely representing a proteinaceous/hemorrhagic cy st. IMPRESSION: 1. No evidence of acute fracture of the thoracolumbar spine. 2. T11-T12 posterior disc osteophyte complex resulting in mild central canal stenosis and mild left n eural foraminal stenosis. 3. Postsurgical changes from L5-S1 fusion. Hardware appears intact with appropriate alignment. 4. Mild multilevel degenerative disc disease and facet arthropathy as described above. Similar to nicole or exam. [facility], , 07/19/2024 10:38 AM
== END | disposition home or self-care (01) ==
LOC: RADCTMAIN 09:28
PROVIDERS: ATTEND Psychiatry & Neurology Neurology
DX: M51.26 Other intervertebral disc displacement, lumbar region (principal); M51.24 Other intervertebral disc displacement, thoracic region; M50.20 Other cervical disc displacement, unspecified cervical region; M99.72 Connective tissue and disc stenosis of intervertebral foramina of thoracic region; M47.816 Spondylosis without myelopathy or radiculopathy, lumbar region; M47.812 Spondylosis without myelopathy or radiculopathy, cervical region; G89.29 Other chronic pain; M25.78 Osteophyte, vertebrae; Z98.1 Arthrodesis status
CPT/HCPCS: 72125; 72128; 72131

== ENCOUNTER → 2024-07-30 | Outpatient (CLI) | payer OTHER ==
--- NOTE | 2024-07-30 12:23 | CTL ---
Request for follow-up regarding left renal hyperdense cyst. This is stable dating back to 2020 and fa vored to represent a benign proteinaceous/hemorrhagic cyst. This can be followed up with renal ultras ound in one year to assess for stability. [facility], , 08/02/2024 11:50 AM
== END | disposition home or self-care (01) ==
LOC: RADCTMAIN 09:40
PROVIDERS: ATTEND Family Medicine
DX: Z12.2 Encounter for screening for malignant neoplasm of respiratory organs (principal); Z87.891 Personal history of nicotine dependence
CPT/HCPCS: 71271

== ENCOUNTER → 2024-08-16 | Outpatient (CLI) | payer OTHER ==
--- NOTE | 2024-08-19 08:51 | MM ---
Reason for Exam: Screening (asymptomatic). Last screening mammogram was performed 12 month(s) ago. Patient History: Menarche at age 14. First Full-Term at age 17. Left ovary removed at age 28. Right ovary removed at age 28. Hysterectomy at age 26. Postmenopausal. Other cancer. 2005, Bilateral Implant Removal. 1996, Bilateral Implants. Maternal aunt had breast cancer, age 50. Risk Values: Marlee 5 year model risk: 0.6%. NCI Lifetime model risk: 6.0%. Prior Study Comparison: 07/07/2021 Bilateral Diagnostic Mammogram, [facility]. 07/18/2022 Bilateral MG 3D screening mammo w/cad, [facility]. 08/15/2023 Bilateral MG screening mammo w CAD, [facility]. Tissue Density: The breasts are heterogeneously dense, which may obscure small masses. Findings: Analyzed By CAD. Right breast: There is no suspicious group of microcalcifications or new suspicious mass. Benign-appearing calcifications right breast. Left breast: There is no suspicious group of microcalcifications or new suspicious mass. Overall Assessment: Benign, BI-RAD 2 Management: Screening Mammogram of both breasts in [address] [facility] will attempt to contact patient to return for supplemental views and ultrasound if indicated. Patient should continue monthly self-breast exams. A clinical breast exam by your physician is recommended on an annual basis. This exam should not preclude additional follow-up of suspicious palpable abnormalities. Note on Marlee scores and lifetime risk: 1. A Marlee score greater than 3% is considered moderate risk. If this is the case, consider specialist referral to assess eligibility for a risk reducing agent. 2. If overall lifetime risk for the development of breast cancer is 20% or higher, the patient may qualify for future screening with alternating mammogram and breast MRI. [facility], , 08/19/2024 8:48 AM. Electronically signed and approved by: Matt Yip DO
== END | disposition home or self-care (01) ==
LOC: RADMAMWWP 10:34
PROVIDERS: ATTEND Family Medicine
DX: Z12.31 Encounter for screening mammogram for malignant neoplasm of breast (principal); Z78.0 Asymptomatic menopausal state; Z80.3 Family history of malignant neoplasm of breast; Z90.722 Acquired absence of ovaries, bilateral; R92.333 Mammographic heterogeneous density, bilateral breasts
CPT/HCPCS: 77063; 77067

== ENCOUNTER 2024-11-19 15:23 | Emergency (ER) | payer OTHER ==
[2024-11-19 15:50] VITALS: TEMP 98.1
--- NOTE | 2024-11-19 18:09 | CT ---
EXAMINATION TYPE: CT lumbar spine wo con DATE OF EXAM: 11/19/2024 5:48 PM COMPARISON: 07/19/2024. CLINICAL INDICATION: Female, 49 years old with history of pain; PHH, Low back pain. TECHNIQUE: Multiple axial images were obtained from the midportion of T11 through the sacroiliac noel nts. Soft tissue and bone windows in coronal and sagittal planes were obtained and reviewed. Contrast used: mL of , (None, if empty). Oral contrast used: (None, if empty). CT DLP: 696.1 mGycm, Automated exposure control for dose reduction was used. FINDINGS: Alignment: There are 5 lumbar type vertebral bodies within normal alignment. Bone: No evidence of fracture is identified. Multilevel degeneration changes with osteophyte formati on, disc space narrowing, facet joint arthropathy. Fixation hardware at L5-S1 appears intact Discs: T12-L1: No spinal canal or neural foraminal stenosis is identified. L1-L2: No spinal canal or neural foraminal stenosis is identified. L2-L3: No spinal canal or neural foraminal stenosis is identified. L3-L4: Facet joint arthropathy, with calcified body at the neural foramen on the left measuring 9 mm abutting the exiting nerve. L4-L5: No spinal canal or neural foraminal stenosis is identified. L5-S1: No spinal canal or neural foraminal stenosis is identified. Other: None IMPRESSION: 1. No evidence for spinal fracture. 2. Fixation hardware appears intact. 3. Mild degeneration changes of the spine. 4. Calcified body in the left neural foramen at L3-L4 which abuts the exiting nerve. [facility], , 11/19/2024 6:07 PM
[2024-11-19] MEDS: KETOROLAC 15 MG/ML 1 ML VIAL IM STA (18:17)
[2024-11-19] MEDS: PANTOPRAZOLE 40 MG TABLET PO STA (18:20)
--- NOTE | 2024-11-19 18:27 | ED ---
Back Pain HPI - General Chief Complaint: Back Pain/Injury Stated Complaint: Back pain Time Seen by Provider: 11/19/24 16:09 Source: patient Limitations: no limitations - History of Present Illness Initial Comments: 49-year-old female presenting with chief complaint of back pain. Patient does have history of chronic back pain. She has had no new injury or trauma. She is having lower back pain that radiates to her hips. No loss of bowel or bladder control or saddle paresthesia. No fevers or chills. No abdominal pain, nausea, vomiting. States that she had a Toradol and steroid shot at her PCPs office. She has also been taking Motrin and Tylenol. She takes gabapentin and methadone regularly for her pain. She is concerned that what normally works for her pain is not working today. - Related Data Home Medications Medication Instructions Recorded Confirmed Methadone [Dolophine] 10 mg PO TID PRN 01/19/14 05/25/21 Levothyroxine Sodium [Synthroid] 88 mcg PO TUTHSA 04/20/16 05/25/21 Levothyroxine Sodium [Synthroid] 100 mcg PO SUMOWEFR 04/20/16 05/25/21 Aspirin EC [Ecotrin Low Dose] 81 mg PO DAILY 08/31/17 05/25/21 Gabapentin [Neurontin] 100 mg PO DAILY 08/31/17 05/25/21 polyethylene glycoL 3350 [Miralax] 17 gm PO DAILY PRN 08/31/17 05/25/21 Acetaminophen [Tylenol Arthritis] 650 mg PO Q6H PRN 05/14/21 05/25/21 Ibuprofen [Motrin] 600 mg PO Q6HR PRN 05/14/21 05/25/21 Loratadine [Claritin] 10 mg PO DAILY 05/25/21 05/25/21 Previous Rx's Medication Instructions Recorded Ketorolac [Toradol] 10 mg PO Q6HR PRN #12 tab 11/19/24 Allergies Allergy/AdvReac Type Severity Reaction Status Date / Time latex Allergy Rash/Hives Verified 05/25/21 16:02 prochlorperazine edisylate AdvReac FEELS LIKE Verified 05/25/21 16:02 [From Compazine] SKIN IS CRAWLING" prochlorperazine maleate AdvReac Unknown Verified 05/25/21 16:02 [From Compazine] Review of Systems ROS Statement: Those systems with pertinent positive or pertinent negative responses have been documented in the HPI. ROS Other: All systems not noted in ROS Statement are negative. Past Medical History Past Medical History: Blood Disorder, Cancer, COPD, Musculoskeletal Disorder, Skin Disorder, Thyroid Disorder Additional Past Medical History / Comment(s): factor 5 deficiency, raynauds, slight emphysema (no meds), back pain. States leukocytopenia-sees Dr. Beck. Osteopenia, skin cancer. Sick with sinus infection, treated w/ AB Rx, completed, had CXR 05/25/21 was nl. History of Any Multi-Drug Resistant Organisms: None Reported, MRSA Date of last positivie culture/infection: 2005 MDRO Source:: breast Past Surgical History: Appendectomy, Back Surgery, Breast Surgery, Section, Hysterectomy, Orthopedic Surgery, Tonsillectomy Additional Past Surgical History / Comment(s): BREAST IMPLANTS, later REMOVED, LAPAROSCOPIC SURGERY x3 for endometriosis, LEFT HIP SURGERY, FUSION L-5 & S-1., X2. Past Anesthesia/Blood Transfusion Reactions: No Reported Reaction Additional Past Anesthesia/Blood Transfusion Reaction / Comment(s): "Feels cold" due to Raynauds. Past Psychological History: No Psychological Hx Reported Smoking Status: Former smoker Past Alcohol Use History: None Reported Past Drug Use History: None Reported - Past Family History Sister(s) Additional Family Medical History / Comment(s): FACTOR 5 Mother Family Medical History: Cancer Additional Family Medical History / Comment(s): FACTOR 5 (MOTHERS SIBLINGS ALSO HAVE FACTOR 5) General Exam Limitations: no limitations General appearance: alert, in no apparent distress Head exam: Present: atraumatic, normocephalic, normal inspection Eye exam: Present: normal appearance, EOMI Neck exam: Present: normal inspection. Absent: meningismus Respiratory exam: Present: normal lung sounds bilaterally. Absent: respiratory distress, wheezes, rales, rhonchi, stridor Cardiovascular Exam: Present: normal rhythm, tachycardia, normal heart sounds. Absent: systolic murmur, diastolic murmur, rubs, gallop, clicks Back exam: Present: normal inspection. Absent: tenderness Neurological exam: Present: alert, oriented X3 Psychiatric exam: Present: normal affect, normal mood Skin exam: Present: warm, dry, normal color Course Vital Signs 11/19/24 11/19/24 15:44 18:40 Temperature 98.1 F Pulse Rate 115 H 114 H Respiratory 20 18 Rate Blood Pressure 116/83 152/80 O2 Sat by Pulse 96 97 Oximetry Medical Decision Making - Medical Decision Making Was pt. sent in by a medical professional or institution ([facility], BRAIDER OPERATOR, urgent care, hospital, or [place] [facility] facility...) When possible be specific @ -PCP Did you speak to anyone other than the patient for history (EMS, parent, family, police, friend...)? What history was obtained from this source @ -No Did you review nursing and triage notes (agree or disagree)? Why? @ -I reviewed and agree with nursing and triage notes Were old charts reviewed (outside hosp., previous admission, EMS record, old EKG, old radiological studies, urgent care reports/EKG's, [place] [facility] care facility records)? Report findings @ -No old charts were reviewed Differential Diagnosis (chest pain, altered mental status, abdominal pain women, abdominal pain men, vaginal bleeding, weakness, fever, dyspnea, syncope, headache, dizziness, GI bleed, back pain, seizure, CVA, palpatations, mental health, musculoskeletal)? @ - MDM Differential Back Pain: Strain, zoster, cauda equina syndrome, epidural abscess, vertebral osteomyelitis, discitis, fracture, subluxation, disc herniation, DJD, spinal stenosis, dissection, AAA, pancreatitis, peptic ulcer disease, pyelonephritis, kidney stone this is not meant to be an all-inclusive list. EKG interpreted by me (3pts min.). @ -As above X-rays interpreted by me (1pt min.). @ -None done CT interpreted by me (1pt min.). @ -CT shows no evidence for spinal fracture. Fixation hardware appears intact. Mild degeneration changes of the spine. Calcified body in the left neural foramen at L3-L4 which abuts the exiting nerve U/S interpreted by me (1pt. min.). @ -None done What testing was considered but not performed or refused? (CT, X-rays, U/S, labs)? Why? @ -None What meds were considered but not given or refused? Why? @ -None Did you discuss the management of the patient with other professionals (professionals i.e. , [facility], BRAIDER OPERATOR, lab, RT, psych nurse, sr. social media & mobile manager, practice architect, teacher, emergency communications officer, shelter case manager)? Give summary @ -No Was smoking cessation discussed for >3mins.? @ -No Was critical care preformed (if so, how long)? @ -No Were there social determinants of health that impacted care today? How? (Homelessness, low income, unemployed, alcoholism, drug addiction, transportation, low edu. Level, literacy, decrease access to med. care, residential, rehab)? @ -No Was there de-escalation of care discussed even if they declined (Discuss DNR or withdrawal of care, Hospice)? DNR status @ -No What co-morbidities impacted this encounter? (DM, HTN, Smoking, COPD, CAD, Cancer, CVA, ARF, Chemo, Hep., AIDS, mental health diagnosis, sleep apnea, morbid obesity)? @ -None Was patient admitted / discharged? Hospital course, mention meds given and route, prescriptions, significant lab abnormalities, going to OR and other pertinent info. @ -49-year-old female history of chronic back pain presenting with chief complaint of lower back pain. No red flag symptoms. Sent by her PCP for CT. History and physical examination are conducted. CT does show a calcification which abuts the neural foramen at L3-L4. Patient is treated with pain medication. She is educated on today's findings. Patient states that she needs to leave immediately. She is provided with orthopedic spine follow-up. Provided with Toradol for home. Educated on return parameters. Follow-up with PCP. Report back to ER with any new or worsening symptoms. Discussed return parameters and answered all questions. Patient conveyed verbal understanding and agreed to the plan. I discussed this case in detail with my attending Dr. Acosta Undiagnosed new problem with uncertain prognosis? @ -No Drug Therapy requiring intensive monitoring for toxicity (Heparin, Nitro, Insulin, Cardizem)? @ -No Were any procedures done? @ -No Diagnosis/symptom? @ -Back pain Acute, or Chronic, or Acute on Chronic? @ -Acute on chronic Uncomplicated (without systemic symptoms) or Complicated (systemic symptoms)? @ -Uncomplicated Side effects of treatment? @ -No Exacerbation, Progression, or Severe Exacerbation? @ -No Poses a threat to life or bodily function? How? (Chest pain, [place], [place], pneumonia, PE, COPD, DKA, ARF, appy, cholecystitis, CVA, Diverticulitis, Homicidal, Suicidal, threat to staff... and all critical care pts) @ -Low likelihood Disposition Clinical Impression: Lumbar radiculopathy Disposition: HOME SELF-CARE Condition: Good Instructions (If sedation given, give patient instructions): Acute Low Back Pain (ED) Additional Instructions: Follow up with PCP and ortho. Report back to ER with any new or worsening symptoms Prescriptions: Ketorolac [Toradol] 10 mg PO Q6HR PRN #12 tab PRN Reason: Pain Is patient prescribed a controlled substance at d/c from ED?: No Referrals: Jocelyne Domingo MD [Primary Care Provider] - 1-2 days Cristi Clark DO [Doctor of Osteopathic Medicine] - 1-2 days Time of Disposition: 18:26
[2024-11-19 18:42] VITALS: BP 152/80; PULSE 114; RESP 18
== END 2024-11-19 18:40 | disposition home or self-care (01) ==
LOC: EC 15:23
DX: M54.16 Radiculopathy, lumbar region (principal); Z87.891 Personal history of nicotine dependence
CPT/HCPCS: 72131; 99284; 96372; J1885